=== PATIENT | male | born 1975 | race Two or more races ===

== ENCOUNTER 2017-06-09 19:39 | Inpatient (IN) | payer MEDICAID ==
[2017-06-09] MEDS ORDERED: Vancomycin 1gm in NS 250ml 1 GM/250 ML BAG IVPB STA (20:10)
[2017-06-09] MEDS ORDERED: Piperacill/Tazo 4.5gm in NS 4.5 GM/100 ML BAG IVPB STA (20:10)
[2017-06-09 20:32] LABS: BASO # 0.04 K/mm3 (0.0-2.0); BASO % 0.2 % (0.0-3.0); EOS # 0.2 (0.0-0.7); EOS % 1.4 % (1.5-5.0); GRAN # 12.89 (1.4-6.5); GRAN % 78.5 % (50.0-68.0); HEMATOCRIT 33.3 % (42.0-52.0); LYMPH # 1.8 (1.2-3.4); LYMPH % 10.8 % (22.0-35.0); MEAN CELL VOLUME 91.7 fl (80.0-105.0); MEAN CORPUSCULAR HEMOGLOBIN 30.6 pg (25.0-35.0); MEAN CORPUSCULAR HGB CONC 33.3 g/dl (31.0-37.0); MEAN PLATELET VOLUME 10.6 fl (7.0-11.0); MONO # 1.5 (0.1-0.6); MONO % 9.1 % (1.0-6.0); RED CELL DISTRIBUTION WIDTH 12.5 % (11.5-14.5); WHITE BLOOD COUNT 16.4 10^3/ul (4.5-11.0)
[2017-06-09 20:35] LABS: VENOUS BLOOD GAS BASE EXCESS -6.6 mmol/L (0.0-2.0); VENOUS BLOOD PH 7.27 (7.32-7.43)
[2017-06-09 20:46] LABS: BILIRUBIN,TOTAL 0.7 mg/dL (0.2-1.3); CALCIUM 9.8 mg/dL (8.4-10.5); MAGNESIUM 1.8 mg/dL (1.7-2.2); PHOSPHOROUS 5.2 mg/dL (2.5-4.5); POTASSIUM 3.9 mmol/L (3.6-5.0); TOTAL PROTEIN 8.5 g/dL (5.8-8.3)
[2017-06-09 20:53] LABS: ALB/GLOB RATIO 0.9 (1.1-1.8)
[2017-06-09 20:55] LABS: INR 1.29 (0.93-1.08); PARTIAL THROMBOPLASTIN TIME 24.8 Seconds (25.1-36.5)
[2017-06-09] MEDS ORDERED: Piperacillin/Tazobact 2.25gm 2.25 GM/100 ML BAG IVPB STA (21:05)
--- NOTE | 2017-06-09 21:14 | ED PDOC ---
Arrival/HPI - General Chief Complaint: Lower Extremity Problem/Injury Time Seen by Provider: 06/09/17 20:05 Historian: Patient - History of Present Illness Narrative History of Present Illness (Text): 06/09/17 20:05 Shant Vail is a 42 year old male who presents to the emergency department complaining of progressively worsening left foot pain with associated swelling and redness that began two days ago. Patient notes that his foot emits an overwhelming odor. Patient denies any fever, chills, chest pain, shortness of breath, nausea, vomiting, diarrhea, urinary symptoms, back pain, neck pain, headache, dizziness, or any other complaints. PMD: Dr. Hart Time/Duration: < week Symptom Onset: Gradual Symptom Course: Worsening Severity Level: Mild Activities at Onset: Light Context: Home Past Medical History - Provider Review Nursing Documentation Reviewed: Yes - Endocrine/Metabolic Hx Endocrine Disorders: Yes Hx Diabetes Mellitus Type 2: Yes - Psychiatric Hx Substance Use: No Family/Social History - Physician Review Nursing Documentation Reviewed: Yes Family/Social History: No Known Family HX Smoking Status: Former Smoker Hx Alcohol Use: No Hx Substance Use: No Allergies/Home Meds Allergies/Adverse Reactions: Allergies No Known Allergies Allergy (Verified 06/09/17 20:03) Home Medications: Home Meds Medication Instructions Recorded Confirmed GlipiZIDE [Glipizide] 10 mg PO BID 06/09/17 06/09/17 MetFORMIN [glucOPHAGE] 1,000 mg PO BID 06/09/17 06/09/17 Review of Systems - Physician Review All systems were reviewed & negative as marked: Yes - Review of Systems Constitutional: absent: Fevers, Night Sweats Eyes: absent: Vision Changes ENT: absent: Hearing Changes Respiratory: absent: SOB, Cough Cardiovascular: absent: Chest Pain Gastrointestinal: absent: Abdominal Pain Genitourinary Male: absent: Dysuria, Frequency Musculoskeletal: Other (Left foot pain with swelling and redness) Neurological: absent: Headache Endocrine: absent: Diaphoresis Hemo/Lymphatic: absent: Adenopathy Psychiatric: absent: Anxiety, Depression Physical Exam Vital Signs Reviewed: Yes Vital Signs Temp Pulse Resp BP Pulse Ox 06/09/17 20:35 118 H 100 H 179/108 H 14 L 06/09/17 20:25 118 H 14 165/107 H 99 06/09/17 20:15 121 H 99 H 165/97 H 14 L 06/09/17 20:04 98.5 F 130 H 18 180/107 H 100 Temperature: Afebrile Blood Pressure: Hypertensive Pulse: Tachycardic Respiratory Rate: Normal Mental Status: Positive for: Alert and Oriented X 3 - Systems Exam Head: Present: Atraumatic, Normocephalic Pupils: Present: PERRL Extroacular Muscles: Present: EOMI Conjunctiva: Present: Normal Mouth: Present: Moist Mucous Membranes Neck: Present: Normal Range of Motion Respiratory/Chest: Present: Clear to Auscultation, Good Air Exchange. No: Respiratory Distress, Accessory Muscle Use Cardiovascular: Present: Regular Rate and Rhythm, Normal S1, S2. No: Murmurs Abdomen: Present: Normal Bowel Sounds. No: Tenderness, Distention, Peritoneal Signs Back: Present: Normal Inspection Upper Extremity: Present: Normal Inspection. No: Cyanosis, Edema Lower Extremity: Present: Swelling (and Cellulitis to left foot) Neurological: Present: GCS=15, CN II-XII Intact, Speech Normal Skin: Present: Other (Scar to lateral aspect of left foot) Psychiatric: Present: Alert, Oriented x 3, Normal Insight, Normal Concentration Medical Decision Making ED Course and Treatment: 06/09/17 21:16 Impression: 42 year old male complaining of left foot pain with associated swelling and redness that began 2 days ago. Differential Diagnosis included but are not limited to: Plan: -- EKG -- Chest X-ray -- Left Foot X-ray -- Blood Culture -- Wound Culture -- Urine Culture -- Urinalysis -- Labs -- Humulin, Tylenol, Vancomycin, and Zosyn -- Reassess and disposition Progress Notes: EKG: Ordered, reviewed, and independently interpreted the EKG. Rate: 128 BPM Rhythm: Sinus tachycardia Interpretation: No ST-segment elevations or depressions, no T-wave inversions, normal intervals. case d/w dr bender for dr hart accepts case 06/12/17 22:24 - Lab Interpretations Microbiology Results: Microbiology Results 06/09/17 20:30 Blood Blood Culture - Preliminary NO GROWTH AFTER 3 DAYS 06/09/17 20:10 Blood Blood Culture - Preliminary NO GROWTH AFTER 3 DAYS Lab Results: 06/09/17 20:10 06/09/17 20:10 Lab Results 06/09/17 20:28: POC Glucose (mg/dL) 225 H 06/09/17 20:10: Sodium 139, Chloride 104, Potassium 3.9, Carbon Dioxide 18 L, Anion Gap 21 H, BUN 39 H, Creatinine 4.0 H, Est GFR ( Amer) 20, Est GFR ( Non-Af Amer) 16, Random Glucose 223 H, Calcium 9.8, Phosphorus 5.2 H, Magnesium 1.8, Total Bilirubin 0.7, AST 22, ALT 23, Alkaline Phosphatase 79, Total Protein 8.5 H, Albumin 4.0, Globulin 4.5, Albumin/Globulin Ratio 0.9 L 06/09/17 20:10: pO2 47, VBG pH 7.27 L, VBG pCO2 44.0, VBG HCO3 20.2 L, VBG Total CO2 21.6 L, VBG O2 Sat (Calc) 84.5 H, VBG Base Excess -6.6 L, VBG Potassium 3.8, Sodium 138.0, Chloride 103.0, Glucose 237 H, Lactate 1.5, FiO2 21.0, Venous Blood Potassium 3.8 06/09/17 20:10: PT 14.1 H, INR 1.29 H, APTT 24.8 L 06/09/17 20:10: WBC 16.4 H, RBC 3.63, Hgb 11.1 L, Hct 33.3 L, MCV 91.7, MCH 30.6 , MCHC 33.3, RDW 12.5, Plt Count 283, MPV 10.6, Gran % 78.5 H, Lymph % (Auto) 10.8 L, [place] % (Auto) 9.1 H, Eos % (Auto) 1.4 L, Baso % (Auto) 0.2, Gran # 12.89 H, Lymph # 1.8, [place] # 1.5 H, Eos # 0.2, Baso # 0.04 I have reviewed the lab results: Yes - RAD Interpretation Radiology Orders: 06/09/17 20:14 CHEST TWO VIEWS (PA/LAT) [RAD] Stat FOOT LEFT 3 VIEWS ROUTINE [RAD] Stat - Medication Orders Current Medication Orders: Acetaminophen (Tylenol 325mg Tab) 650 mg PO Q4H PRN PRN Reason: Fever >100.5 F Last Admin: 06/10/17 00:05 Dose: 650 mg MAR Pain/Vitals Document 11/27/17 00:05 AJP (Rec: 06/10/17 00:05 AJP [id number]) Pain Reassessment Is This A Pain ReAssessment? No Sleep Is patient sleeping during reassessment? No Presence of Pain Presence of Pain No Vitals Temperature (97.6 F-99.6 F) 102.1 F Temperature Source Rectal Re-Assess: MAR Pain/Vitals Document 06/10/17 01:05 RR (Rec: 06/10/17 20:45 RR [id number]) Pain Reassessment Is This A Pain ReAssessment? Yes Sleep Is patient sleeping during reassessment? Yes Pain Scale Used Pain Scale Used FLACC Acetaminophen (Tylenol 325mg Tab) 650 mg PO Q4 PRN PRN Reason: Pain, moderate (4-7) Alprazolam (Xanax) 0.25 mg PO TID PRN; Protocol PRN Reason: Anxiety Stop: 06/17/17 10:01 Amlodipine Besylate (Norvasc) 10 mg PO DAILY [facility] Last Admin: 06/12/17 09:22 Dose: 10 mg MAR Blood Pressure Document 06/12/17 09:22 LO (Rec: 06/12/17 09:23 [email or web address]) Blood Pressure Blood Pressure (100/60-150/90) 139/81 Enoxaparin Sodium (Lovenox) 40 mg SC DAILY [facility] PRN Reason: Protocol Last Admin: 06/12/17 09:22 Dose: 40 mg Subcutaneous Administrations Document 06/12/17 09:22 LO (Rec: 06/12/17 09:22 [email or web address]) Injection Site MAR Injection Site Umbilicus Charges for Administration # of Subcutaneous Administrations 1 Glipizide (Glucotrol) 10 mg PO BID [facility] Last Admin: 06/12/17 17:01 Dose: 10 mg Hydralazine HCl (Apresoline) 50 mg PO BID [facility] Last Admin: 06/12/17 17:01 Dose: 50 mg MAR Pulse and Blood Pressure Document 06/12/17 17:01 LO (Rec: 06/12/17 17:02 [id number] Pulse Pulse Rate (60-90) 101 Blood Pressure Blood Pressure (100/60-150/90) 123/79 Hydralazine HCl (Apresoline) 25 mg PO Q4 PRN PRN Reason: Other Linezolid (Zyvox 600mg/300ml D5w) 600 mg in 300 mls @ 200 mls/hr IVPB Q12 JACQUELINE PRN Reason: Protocol Stop: 06/17/17 10:31 Last Admin: 06/12/17 21:27 Dose: 200 mls/hr eMAR Start Stop Document 06/12/17 21:27 MUNDO (Rec: 06/12/17 21:27 MUNDO [place] [id number]) Intravenous Solution Start Date 06/12/17 Start Time 22:30 End Date 06/13/17 End time 00:00 Total Infusion Time 90 Meropenem 1 gm/ Dextrose 100 mls @ 100 mls/hr IVPB Q12 JACQUELINE Stop: 06/17/17 10:31 Last Admin: 06/12/17 21:26 Dose: 100 mls/hr eMAR Start Stop Document 06/12/17 21:26 MUNDO (Rec: 06/12/17 21:26 MUNDO [id number]) Intravenous Solution Start Date 06/12/17 Start Time 21:26 End Date 06/12/17 End time 22:26 Total Infusion Time 60 Sodium Chloride (Sodium Chloride 0.45%) 1,000 mls @ 40 mls/hr IV .Q24H [facility] Last Admin: 06/12/17 07:30 Dose: 40 mls/hr eMAR Start Stop Document 06/12/17 07:30 LO (Rec: 06/12/17 08:30 LO [id number]) Intravenous Solution Start Date 06/12/17 Start Time 07:30 Insulin Human Regular (Humulin R Low) 0 units SC ACHS JACQUELINE PRN Reason: Protocol Last Admin: 06/12/17 16:47 Dose: 2 units MAR Blood Glucose Document 06/12/17 16:47 LO (Rec: 06/12/17 16:48 LO [place] [id number]) Blood Glucose Finger Stick Blood Glucose (70-120) 217 Subcutaneous Administrations Document 06/12/17 16:47 LO (Rec: 06/12/17 16:48 LO [place] [id number]) Injection Site MAR Injection Site Left Arm Charges for Administration # of Subcutaneous Administrations 1 Metformin HCl (Glucophage) 1,000 mg PO BID [facility] Last Admin: 06/11/17 21:16 Dose: Oxychlorosene Sodium (Clorpactin Wcs-90) 2 gm TOP DAILY JACQUELINE Oxycodone/Acetaminophen (Percocet 5/325 Mg Tab) 1 tab PO Q6H PRN PRN Reason: Pain, severe (8-10) Stop: 06/13/17 16:57 Zolpidem Tartrate (Ambien) 5 mg PO HS PRN; Protocol PRN Reason: Insomnia Last Admin: 06/11/17 21:27 Dose: 5 mg Behavioural Document 06/11/17 21:27 RR (Rec: 06/11/17 21:27 RR [id number]) Maintenance Maintenance Dose Yes Re-Assess: Reassess Psych Meds Document 06/11/17 22:27 RR (Rec: 06/12/17 00:25 RR [id number]) Reassess Psych Med Effective Discontinued Medications Amlodipine Besylate (Norvasc) 10 mg PO DAILY [facility] Stop: 06/10/17 00:32 Last Admin: 06/10/17 00:50 Dose: 10 mg MAR Blood Pressure Document 06/10/17 00:50 AJP (Rec: 06/10/17 00:51 AJP [id number]) Blood Pressure Blood Pressure (100/60-150/90) 200/108 Hydralazine HCl (Apresoline) 10 mg IVP ONCE ONE Stop: 06/09/17 22:31 Last Admin: 06/09/17 22:37 Dose: 10 mg IVP Administration Document 06/09/17 22:37 RD (Rec: 06/09/17 22:38 RD [id number]) Charges for Administration # of IVP Administrations 1 MAR Pulse and Blood Pressure Document 06/09/17 22:37 RD (Rec: 06/09/17 22:38 RD [id number]) Pulse Pulse Rate (60-90) 118 Blood Pressure Blood Pressure (100/60-150/90) 168/95 Hydromorphone HCl (Dilaudid) 1 mg IVP STAT STA Stop: 06/11/17 09:40 Last Admin: 06/11/17 09:40 Dose: Not Given Non-Admin Reason: Patient Refused MAR Pain Assessment Document 06/11/17 09:40 LO (Rec: 06/11/17 15:17 LO [id number]) Pain Reassessment Is this a pain reassessment? No Sleep Is patient sleeping during reassessment? No Presence of Pain Presence of Pain No Sodium Chloride 3,000 ml/ IV (SUPPLIES) 3,000 mls @ 7,076.04 mls/hr IV ONCE ONE PRN Reason: 60 ML/KG/HR Stop: 06/09/17 20:11 Last Admin: 06/09/17 20:18 Dose: 7,076.04 mls/hr eMAR Start Stop Document 06/09/17 20:18 YP (Rec: 06/09/17 20:18 YP [id number]) Intravenous Solution Start Date 06/09/17 Start Time 20:18 End Date 06/09/17 End time 20:45 Total Infusion Time 27 Vancomycin HCl (Vancomycin 1gm) 1 gm in 250 mls @ 167 mls/hr IVPB STAT STA PRN Reason: Protocol Stop: 06/09/17 21:39 Last Admin: 06/09/17 21:19 Dose: 167 mls/hr eMAR Start Stop Document 06/09/17 21:19 RD (Rec: 06/09/17 21:19 RD [id number]) Intravenous Solution Start Date 06/09/17 Start Time 21:19 End Date 06/09/17 End time 22:49 Total Infusion Time 90 Piperacillin Sod/Tazobactam Sod (Zosyn 2.25 Gm In 0.9% 100 Ml) 2.25 gm in 100 mls @ 100 mls/hr IVPB STAT STA PRN Reason: Protocol Stop: 06/09/17 22:04 Last Admin: 06/10/17 00:20 Dose: 100 mls/hr eMAR Start Stop Document 06/10/17 00:20 AJP (Rec: 06/10/17 00:20 [id number]) Intravenous Solution Start Date 06/10/17 Start Time 00:20 Sodium Chloride (Sodium Chloride 0.9%) 1,000 mls @ 80 mls/hr IV .[id number] JACQUELINE Last Admin: 06/10/17 00:20 Dose: 80 mls/hr eMAR Start Stop Document 06/10/17 00:20 AJP (Rec: 06/10/17 00:20 [id number]) Intravenous Solution Start Date 06/10/17 Start Time 00:20 Meropenem 500 mg/ Sodium (Chloride) 50 mls @ 100 mls/hr IVPB Q12 JACQUELINE PRN Reason: Protocol Stop: 06/17/17 10:31 Last Admin: 06/10/17 11:22 Dose: 100 mls/hr eMAR Start Stop Document 06/10/17 11:22 [facility]MC (Rec: 06/10/17 11:23 [facility] [id number]) Intravenous Solution Start Date 06/10/17 Start Time 11:22 End Date 06/10/17 End time 12:00 Total Infusion Time 38 Sodium Chloride (Sodium Chloride 0.45%) 1,000 mls @ 75 mls/hr IV .[id number] JACQUELINE Last Admin: 06/11/17 21:16 Dose: 75 mls/hr eMAR Start Stop Document 06/11/17 21:16 RR (Rec: 06/11/17 21:16 RR [id number]) Intravenous Solution Start Date 06/11/17 Start Time 21:16 Meropenem 1,000 mg/ Sodium (Chloride) 50 mls @ 100 mls/hr IVPB Q12 JACQUELINE PRN Reason: Protocol Stop: 06/17/17 10:31 Losartan Potassium (Cozaar) 100 mg PO DAILY [facility] Stop: 06/10/17 00:43 Last Admin: 06/10/17 00:51 Dose: 100 mg Losartan Potassium (Cozaar) 100 mg PO DAILY [facility] Last Admin: 06/10/17 10:28 Dose: 100 mg Valsartan (Diovan) 180 mg PO DAILY [facility] Stop: 06/10/17 00:32 Last Admin: 06/10/17 20:45 Dose: - Scribe Statement The provider has reviewed the documentation as recorded by the Kassandra Farris Provider Scribe Attestation: All medical record entries made by the Vinodibtobin were at my direction and personally dictated by me. I have reviewed the chart and agree that the record accurately reflects my personal performance of the history, physical exam, medical decision making, and the department course for this patient. I have also personally directed, reviewed, and agree with the discharge instructions and disposition. Disposition/Present on Arrival - Present on Arrival Any Indicators Present on Arrival: No History of DVT/PE: No History of Uncontrolled Diabetes: No Urinary Catheter: No History of Decub. Ulcer: Yes (left foot) History Surgical Site Infection Following: None - Disposition Have Diagnosis and Disposition been Completed?: Yes Diagnosis: Diabetic foot infection Disposition: HOSPITALIZED Disposition Time: 22:00 Condition: FAIR
[2017-06-09] MEDS ORDERED: Sodium Chloride 0.9% 1,000 ML IV SCH (22:45)
[2017-06-09 22:51] LABS: URINE BILIRUBIN NEGATIVE (NEGATIVE); URINE BLOOD SMALL (NEGATIVE); URINE GLUCOSE (UA) 100 mg/dL (NEGATIVE); URINE KETONE TRACE mg/dL (NEGATIVE); URINE LEUKOCYTE ESTERASE NEGATIVE Leu/uL (NEGATIVE); URINE PROTEIN 30 mg/dL (<30 mg/dL); URINE UROBILINOGEN 0.2 E.U./dL (<1 E.U./dL)
[2017-06-09 22:55] LABS: URINE APPEARANCE SL CLOUDY (CLEAR); URINE COLOR YELLOW (YELLOW)
[2017-06-09 23:01] LABS: URINE BACTERIA MOD (NEG)
--- NOTE | 2017-06-10 08:24 | RAD ---
PROCEDURE: Left Foot Radiographs. HISTORY: foot infection COMPARISON: None. FINDINGS: BONES: Normal. No fracture. JOINTS: Degenerative changes are seen in the ankle joint SOFT TISSUES: There is gas in the soft tissues adjacent to the 5th MTP joint. There is no bony destruction to suggest osteomyelitis. OTHER FINDINGS: None. IMPRESSION: Gas in the soft tissues with no evidence of osteomyelitis
--- NOTE | 2017-06-10 08:24 | RAD ---
HISTORY: fall COMPARISON: No prior. TECHNIQUE: Chest PA and lateral FINDINGS: LUNGS: No active pulmonary disease. PLEURA: No significant pleural effusion identified. No pneumothorax apparent. CARDIOVASCULAR: Normal. OSSEOUS STRUCTURES: No significant abnormalities. VISUALIZED UPPER ABDOMEN: Normal. OTHER FINDINGS: None. IMPRESSION: No active disease.
--- NOTE | 2017-06-10 08:47 | CP.PCM.CON ---
<Libertad Tran - Last Filed: 06/10/17 08:41> History of Present Illness - History of Present Illness History of Present Illness: 42 y/o male with PMHx of DM and HTN seen and evaluated at bedside with attending Dr. Chou for left foot wound. Patient states that he had a callus at the site of the wound which he tried to pick at 2 days ago which led to what he has now. Patient states that he has been having fever for the past couple of days. Patient states that he came to the hospital yesterday because of the pain in his left foot. Patient denies of any other pedal complains at this time. PMHx: DM, HTN PSHx: Denies Allergies: N.K.D.A Review of Systems - Constitutional Constitutional: As Per HPI Past Patient History - Past Social History Smoking Status: Former Smoker - ENDOCRINE/METABOLIC Hx Endocrine Disorders: Yes Hx Diabetes Mellitus Type 2: Yes - MUSCULOSKELETAL/RHEUMATOLOGICAL Hx Falls: No - PSYCHIATRIC Hx Substance Use: No Meds Allergies/Adverse Reactions: Allergies Allergy/AdvReac Type Severity Reaction Status Date / Time No Known Allergies Allergy Verified 06/09/17 20:03 - Medications Medications: Current Medications Acetaminophen (Tylenol 325mg Tab) 650 mg PO Q4H PRN PRN Reason: Fever >100.5 F Last Admin: 06/10/17 00:05 Dose: 650 mg Amlodipine Besylate (Norvasc) 10 mg PO DAILY [facility] Sodium Chloride (Sodium Chloride 0.9%) 1,000 mls @ 80 mls/hr IV .[id number] [facility] Last Admin: 06/10/17 00:20 Dose: 80 mls/hr Insulin Human Regular (Humulin R Low) 0 units SC ACHS [facility] PRN Reason: Protocol Losartan Potassium (Cozaar) 100 mg PO DAILY [facility] Physical Exam - Constitutional Appears: Well, Non-toxic, No Acute Distress - Extremities Exam Extremities exam: Negative for: calf tenderness Additional comments: Bilateral LE focused exam: VASC: DP/PT pulses are palpable 2/4, Cap refill time: < 3 sec to all digits, Temp gradient: warm to cool on the right and warm to warm on the left from proximal to distal, non-pitting edema noted on the dorsum and lateral aspect of the left foot extending to the ankle joint DERM: Erythema extending from the dorsum, and lateral aspect of the left foot to the ankle, hyperpigmented superficial skin with small opening measuring approx 2.0cm x 2.0cm noted on the dorsum of the 5th metatarsal head as well as the plantar aspect of the 5th met head, extreme malodor, fluctuance noted palpation of the dorsolateral, plantarlateral and 4th interspace of the left foot, all signs are highly suspicious of active infection indicating soft tissue emphysema NEURO: Protective sensation grossly intact ORTHO: mild pain on palpation of the wound site - Neurological Exam Neurological exam: Alert, Oriented x3 - Psychiatric Exam Psychiatric exam: Normal Affect, Normal Mood Results - Vital Signs Recent Vital Signs: Last Vital Signs Temp 102.1 F H 06/10/17 00:23 Pulse 127 H 06/10/17 00:23 Resp 20 06/10/17 00:23 BP 200/108 H 06/10/17 00:50 Pulse Ox 14 L 06/09/17 20:35 - Labs Result Diagrams: 06/09/17 20:10 06/09/17 20:10 Labs: Laboratory Results - last 24 hr 06/09/17 22:30 Urine Color Yellow Urine Appearance Sl cloudy Urine pH 6.0 Ur Specific [place] 1.015 Urine Protein 30 H Urine Glucose (UA) 100 H Urine Ketones Trace H Urine Blood Small H Urine Nitrate Negative Urine Bilirubin Negative Urine Urobilinogen 0.2 Ur Leukocyte Esterase Negative Urine RBC 1 - 3 Urine WBC 5 - 10 Ur Epithelial Cells 3 - 4 Urine Bacteria Mod Assessment & Plan - Assessment and Plan (Free Text) Assessment: 42 y/o male with PMHx of DM and HTN evaluated at bedside for left foot abscess with soft tissue emphysema Plan: Patient seen and evaluated at bedside with attending Dr. Chou Labs, vitals and, charts reviewed - febrile with WBC @ 16.4 Left foot x-ray - diffuse radiolucensy on the lateral aspect of the left foot as well as the 4th interspace indicating gas Wound dressed with hydrogel, DSD Patient to go for I&D of the left foot today CXR and EKG reviewed CBC with diff, BMP and PT/INR reviewed Patient placed on NPO Patient educated he will need to go to the OR for wound debridement - patient demonstrated verbal understanding and agrees with the plan Thank you for the podiatry consult - will follow patient while in house - Date & Time Date: 06/10/17 Time: 09:03 <Analilia Chou - Last Filed: 06/10/17 11:12> Meds - Medications Medications: Current Medications Acetaminophen (Tylenol 325mg Tab) 650 mg PO Q4H PRN PRN Reason: Fever >100.5 F Last Admin: 06/10/17 00:05 Dose: 650 mg Alprazolam (Xanax) 0.25 mg PO TID PRN; Protocol PRN Reason: Anxiety Stop: 06/17/17 10:01 Amlodipine Besylate (Norvasc) 10 mg PO DAILY [facility] Last Admin: 06/10/17 10:27 Dose: 10 mg Sodium Chloride (Sodium Chloride 0.45%) 1,000 mls @ 40 mls/hr IV .Q24H JACQUELINE Meropenem 500 mg/ Sodium (Chloride) 50 mls @ 100 mls/hr IVPB Q12 JACQUELINE PRN Reason: Protocol Stop: 06/17/17 10:31 Linezolid (Zyvox 600mg/300ml D5w) 600 mg in 300 mls @ 200 mls/hr IVPB Q12 JACQUELINE PRN Reason: Protocol Stop: 06/17/17 10:31 Insulin Human Regular (Humulin R Low) 0 units SC ACHS JACQUELINE PRN Reason: Protocol Losartan Potassium (Cozaar) 100 mg PO DAILY [facility] Last Admin: 06/10/17 10:28 Dose: 100 mg Zolpidem Tartrate (Ambien) 5 mg PO HS PRN; Protocol PRN Reason: Insomnia Results - Vital Signs Recent Vital Signs: Last Vital Signs Temp 98.9 F 06/10/17 09:00 Pulse 127 H 06/10/17 09:00 Resp 18 06/10/17 09:00 BP 164/87 H 06/10/17 10:27 Pulse Ox 98 06/10/17 09:00 - Labs Result Diagrams: 06/09/17 20:10 06/09/17 20:10 Labs: Laboratory Results - last 24 hr 06/09/17 22:30 Urine Color Yellow Urine Appearance Sl cloudy Urine pH 6.0 Ur Specific [place] 1.015 Urine Protein 30 H Urine Glucose (UA) 100 H Urine Ketones Trace H Urine Blood Small H Urine Nitrate Negative Urine Bilirubin Negative Urine Urobilinogen 0.2 Ur Leukocyte Esterase Negative Urine RBC 1 - 3 Urine WBC 5 - 10 Ur Epithelial Cells 3 - 4 Urine Bacteria Mod Attending/Attestation - Attestation I have personally seen and examined this patient.: Yes I have fully participated in the care of the patient.: Yes I have reviewed all pertinent clinical information: Yes Notes (Text): 06/10/17 11:[address] Soria and sicussed case with him - pt has gas in tissue - sepsis and needs emergency I&D/debridement today
[2017-06-10] MEDS ORDERED: Sodium Chloride 0.45% 1,000 ML IV SCH (09:15)
--- NOTE | 2017-06-10 10:05 | CARD ---
APPROVED REPORT EKG Measurement Heart [id number] <Conclusion> Sinus tachycardia Leftward axis PRWP
[2017-06-10] MEDS ORDERED: Meropenem 500 MG in Sodium Chloride 0.9% 50 ML IVPB SCH (10:30)
--- NOTE | 2017-06-10 11:46 | CP.PCM.CON ---
History of Present Illness - History of Present Illness History of Present Illness: Surgery Consult: Dr. Soria Pt is a 42M with PMHx significant for DM & HTN who presented to [facility] for complaints of foot L foot wound. Pt states that about 2 weeks ago, he felt a callus at the bottom of his left foot and he tried to cut it out with scissors. Over the course of the next few days, he noticed redness and swelling of the area. He also started seeing some foul smelling drainage and came to the ER yesterday to get it evaluated. Pt states he has never had a similar problem in the past. He admits to subjective fevers for the last few days. States he's able to walk on his left foot and pain is bearable now. Denies any other complaints. Denies N/V, chills, chest pain or SOB. PMHx: DM, HTN PSHx: denies All: denies Review of Systems - Review of Systems All systems: reviewed and no additional remarkable complaints except (as per HPI ) Past Patient History - Past Social History Smoking Status: Former Smoker - CARDIAC Hx Hypertension: Yes - PULMONARY Hx Respiratory Disorders: No - RENAL Hx Chronic Kidney Disease: No - ENDOCRINE/METABOLIC Hx Endocrine Disorders: Yes Hx Diabetes Mellitus Type 2: Yes - MUSCULOSKELETAL/RHEUMATOLOGICAL Hx Falls: No - PSYCHIATRIC Hx Substance Use: No - SURGICAL HISTORY Hx Surgeries: No - ANESTHESIA Hx Anesthesia: No Meds Allergies/Adverse Reactions: Allergies Allergy/AdvReac Type Severity Reaction Status Date / Time No Known Allergies Allergy Verified 06/09/17 20:03 - Medications Medications: Current Medications Acetaminophen (Tylenol 325mg Tab) 650 mg PO Q4H PRN PRN Reason: Fever >100.5 F Last Admin: 06/10/17 00:05 Dose: 650 mg Alprazolam (Xanax) 0.25 mg PO TID PRN; Protocol PRN Reason: Anxiety Stop: 06/17/17 10:01 Amlodipine Besylate (Norvasc) 10 mg PO DAILY JACQUELINE Last Admin: 06/10/17 10:27 Dose: 10 mg Sodium Chloride (Sodium Chloride 0.45%) 1,000 mls @ 40 mls/hr IV .Q24H JACQUELINE Meropenem 500 mg/ Sodium (Chloride) 50 mls @ 100 mls/hr IVPB Q12 JACQUELINE PRN Reason: Protocol Stop: 06/17/17 10:31 Last Admin: 06/10/17 11:22 Dose: 100 mls/hr Linezolid (Zyvox 600mg/300ml D5w) 600 mg in 300 mls @ 200 mls/hr IVPB Q12 JACQUELINE PRN Reason: Protocol Stop: 06/17/17 10:31 Insulin Human Regular (Humulin R Low) 0 units SC ACHS JACQUELINE PRN Reason: Protocol Losartan Potassium (Cozaar) 100 mg PO DAILY JACQUELINE Last Admin: 06/10/17 10:28 Dose: 100 mg Zolpidem Tartrate (Ambien) 5 mg PO HS PRN; Protocol PRN Reason: Insomnia Physical Exam - Constitutional Appears: Well, No Acute Distress - Head Exam Head Exam: ATRAUMATIC, NORMOCEPHALIC - Eye Exam Eye Exam: Normal appearance - ENT Exam ENT Exam: Mucous Membranes Moist - Respiratory Exam Respiratory Exam: NORMAL BREATHING PATTERN - Cardiovascular Exam Cardiovascular Exam: RRR - GI/Abdominal Exam GI & Abdominal Exam: Soft. absent: Distended - Extremities Exam Additional comments: L foot warm to touch, ulcer on the dorsal surface with eschar, no active drainage noted. sensation intact - Neurological Exam Neurological exam: Alert, Oriented x3 - Skin Skin Exam: Dry, Warm Results - Vital Signs Recent Vital Signs: Last Vital Signs Temp 98.9 F 06/10/17 09:00 Pulse 127 H 06/10/17 09:00 Resp 18 06/10/17 09:00 BP 164/87 H 06/10/17 10:27 Pulse Ox 98 06/10/17 09:00 - Labs Result Diagrams: 06/09/17 20:10 06/09/17 20:10 Labs: Laboratory Results - last 24 hr 06/09/17 06/10/17 22:30 11:14 POC Glucose (mg/dL) 144 H Urine Color Yellow Urine Appearance Sl cloudy Urine pH 6.0 Ur Specific [place] 1.015 Urine Protein 30 H Urine Glucose (UA) 100 H Urine Ketones Trace H Urine Blood Small H Urine Nitrate Negative Urine Bilirubin Negative Urine Urobilinogen 0.2 Ur Leukocyte Esterase Negative Urine RBC 1 - 3 Urine WBC 5 - 10 Ur Epithelial Cells 3 - 4 Urine Bacteria Mod - Imaging and Cardiology X-ray L foot Status: Image reviewed by me, Report reviewed by me Assessment & Plan - Assessment and Plan (Free Text) Assessment: 42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 Jareth Braun, PGY-3 Surgery
--- NOTE | 2017-06-10 12:50 | CP.PCM.CON ---
History of Present Illness - History of Present Illness History of Present Illness: 42 year old male with PMH of DM, HTN obesity with BMI 37, came in to [facility] complaining of pain and swelling on the left foot since about 1 1 /2 weeks ago, associated with a wound on the lateral plantar surface area below the 4th and 5th toes. He states he did not having a wound there prior to last week. He denies specific animal contact to his foot but he has a cat at home, tried cleaning his foot with hydrogen peroxide and soaking it in water. He denies walking barefoot on soil but the patient walks barefoot at home. He denies fever or chills, no nausea or vomiting, no chest pain, no SOB, no headache or dizziness, no abdominal pain, no diarrhea, no dysuria, no travel outside of [place] in the past 3 months and has not been on antibiotics in the past 3 months. Infectious diseases consult is requested to further evaluate and manage. Review of Systems - Review of Systems All systems: reviewed and no additional remarkable complaints except (as per HPI ) Past Patient History - Past Social History Smoking Status: Former Smoker - ENDOCRINE/METABOLIC Hx Endocrine Disorders: Yes Hx Diabetes Mellitus Type 2: Yes - MUSCULOSKELETAL/RHEUMATOLOGICAL Hx Falls: No - PSYCHIATRIC Hx Substance Use: No Meds Allergies/Adverse Reactions: Allergies Allergy/AdvReac Type Severity Reaction Status Date / Time No Known Allergies Allergy Verified 06/09/17 20:03 - Medications Medications: Current Medications Acetaminophen (Tylenol 325mg Tab) 650 mg PO Q4H PRN PRN Reason: Fever >100.5 F Last Admin: 06/10/17 00:05 Dose: 650 mg Alprazolam (Xanax) 0.25 mg PO TID PRN; Protocol PRN Reason: Anxiety Stop: 06/17/17 10:01 Amlodipine Besylate (Norvasc) 10 mg PO DAILY JACQUELINE Sodium Chloride (Sodium Chloride 0.45%) 1,000 mls @ 40 mls/hr IV .Q24H JACQUELINE Meropenem 500 mg/ Sodium (Chloride) 50 mls @ 100 mls/hr IVPB Q12 JACQUELINE PRN Reason: Protocol Stop: 06/17/17 10:31 Linezolid (Zyvox 600mg/300ml D5w) 600 mg in 300 mls @ 200 mls/hr IVPB Q12 JACQUELINE PRN Reason: Protocol Stop: 06/17/17 10:31 Insulin Human Regular (Humulin R Low) 0 units SC ACHS JACQUELINE PRN Reason: Protocol Losartan Potassium (Cozaar) 100 mg PO DAILY JACQUELINE Zolpidem Tartrate (Ambien) 5 mg PO HS PRN; Protocol PRN Reason: Insomnia Physical Exam - Constitutional Appears: Non-toxic - Head Exam Head Exam: NORMAL INSPECTION - ENT Exam ENT Exam: Mucous Membranes Moist - Neck Exam Neck exam: Negative for: Lymphadenopathy, Meningismus - Respiratory Exam Respiratory Exam: absent: Rales, Rhonchi - Cardiovascular Exam Cardiovascular Exam: +S1, +S2 - GI/Abdominal Exam GI & Abdominal Exam: Soft. absent: Tenderness - Extremities Exam Additional comments: left foot with dressings in place Results - Vital Signs Recent Vital Signs: Last Vital Signs Temp 98.9 F 06/10/17 09:00 Pulse 127 H 06/10/17 09:00 Resp 18 06/10/17 09:00 BP 164/87 H 06/10/17 09:00 Pulse Ox 98 06/10/17 09:00 - Labs Result Diagrams: 06/09/17 20:10 06/09/17 20:10 Labs: Laboratory Results - last 24 hr 06/09/17 22:30 Urine Color Yellow Urine Appearance Sl cloudy Urine pH 6.0 Ur Specific [place] 1.015 Urine Protein 30 H Urine Glucose (UA) 100 H Urine Ketones Trace H Urine Blood Small H Urine Nitrate Negative Urine Bilirubin Negative Urine Urobilinogen 0.2 Ur Leukocyte Esterase Negative Urine RBC 1 - 3 Urine WBC 5 - 10 Ur Epithelial Cells 3 - 4 Urine Bacteria Mod Assessment & Plan - Assessment and Plan (Free Text) Plan: Assessment Sepsis due to left diabetic foot infection R/O gangrene R/O osteomyelitis DM HTN obesity with BMI 37 Plan Started patient on Vancomycin and Merrem pending blood and wound cx; patient is planned for OR today on the foot and will await results including cultures will monitor clinically
--- NOTE | 2017-06-10 14:45 | CP.PCM.CON ---
History of Present Illness - History of Present Illness History of Present Illness: Initial Nephrology Consultation: Assessment: critical Acute Kidney Injury (N17.9) possibly due to sepsis due to left wound infection HAGMA, ketoacidosis DM, HTN, Obesity uncontrolled severe HTN Plan No acute need for renal replacement therapy at this time. Hypertension control with meds as ordered. hold ACEI/ARB due to IMANI. will add hydralazine. check renal artery doppler/sonogram Monitor Input/Output, daily weights and renal function with basic metabolic panel Increase IVF rate Check urine spot protein/creatinine and albumin/creatinine ratio, urine Na further work up depending upon renal course. Dose meds/antibiotics for reduced GFR <15. Avoid fleets enema/magnesium based laxatives. Avoid nephrotoxins/NSAIDs/ iodinated contrast (unless needed emergently) Glycemic control Further work up/management as per primary team Thanks for allowing me to participate in care of your patient. Will follow patient with you. Please call if any Qs. d/w team Dr Titus Neil Office: [phone] Chief Complaint; left foot wound infection Reason for consult: IMANI HPI: Pt is a 42 y/o M with hx of diabetes Mellitus ( 7 years), hypertension (7 years), obesity BMI 37 presented with complaints of left foot wound infection, worsening, for last 1 week. has associated sepsis and renal consulted for IMANI> pt not aware about kidney problems in past. Denies chest pain, palpitation, shortness of breath, leg swelling Denies blood or bubbles in urine Denies OTC/herbal meds or NSAIDs except occasional advil (once a week at max) No recent iodinated contrast exposure. No obvious episodes of low BP. ROS: Constitutional Symptoms: Denies fever. No chills. No Recent Weight Changes Eyes: denies change in vision, denies watery eyes, denies double vision Ears/Nose/Mouth/Throat: Denies Abnormal Taste. No Bad breath no Bad Taste. Cardiovascular: No chest pain. There is no shortness of breath. No palpitations. Pulmonary: No shortness of breath no cough. Gastrointestinal: denies abdominal pain No nausea. No vomiting. Denies change in bowel habits. Denies Bleeding Genitourinary: No Change in force of strain when urinating. No increase in urinary frequency. No pain while urinating. Denies blood in urine. Neurological: Denies headaches. No dizziness. Denies loss of balance. Denies weakness, denies tingling/numbness Dermatological: No Rash or Bruising or ulcers. Psychiatric: Denies Anxiety. No depression. Denies hallucinations. Rheumatological: No joint pain. Denies Joint swelling except left foot wound/ infection Endocrine: Denies tiredness/Fatigue denies Heat/Cold Intolerance. All other negative Physical Examination: General Appearance: Comfortable, in no acute respiratory distress, co-operative . obese Vitals reviewed and noted as below Head; Atraumatic, normocephalic ENT: no ulcers no thrush. Tongue is midline. Oropharynx: no rash or ulcers. EYES: Pupils are equal, round and reactive to light accommodation. Eye muscles and extraocular movement intact. Sclera is anicteric. Neck; supple no lymphadenopathy, no thyromegaly or bruit Lungs: Normal respiratory rate/effort. Breath sounds bilateral equal and clear Heart: Increased rate. s1s2 normal. No rub or gallop. Extremities: no edema. No varicose veins. LEft foot dressed, has foul odor Neurological: Patient is alert, awake and oriented to person, place and time. No focal deficit. Strength bilateral appropriate and equal Skin: Warm and dry. Normal turgor. No rash. Palpitation: Normal elasticity for age Abdomen: Abdomen is soft. Bowel sounds +. There is no abdominal tenderness, no guarding/rigidity no organomegaly Psych: normal insight and normal affect/mood MSK: no joint tenderness or swelling. Digits and nails normal, no deformity : kidney or bladder not palpable Labs/imaging/EKG reviewed. Past medical history, past surgical history, family history, social history, allergy reviewed and noted as below Family hx: no hx of CKD. Rest non-contributory Past Patient History - Past Social History Smoking Status: Former Smoker - CARDIAC Hx Hypertension: Yes - PULMONARY Hx Respiratory Disorders: No - RENAL Hx Chronic Kidney Disease: No - ENDOCRINE/METABOLIC Hx Endocrine Disorders: Yes Hx Diabetes Mellitus Type 2: Yes - MUSCULOSKELETAL/RHEUMATOLOGICAL Hx Falls: No - PSYCHIATRIC Hx Substance Use: No - SURGICAL HISTORY Hx Surgeries: No - ANESTHESIA Hx Anesthesia: No Meds Allergies/Adverse Reactions: Allergies Allergy/AdvReac Type Severity Reaction Status Date / Time No Known Allergies Allergy Verified 06/09/17 20:03 - Medications Medications: Current Medications Acetaminophen (Tylenol 325mg Tab) 650 mg PO Q4H PRN PRN Reason: Fever >100.5 F Last Admin: 06/10/17 00:05 Dose: 650 mg Alprazolam (Xanax) 0.25 mg PO TID PRN; Protocol PRN Reason: Anxiety Stop: 06/17/17 10:01 Amlodipine Besylate (Norvasc) 10 mg PO DAILY JACQUELINE Last Admin: 06/10/17 10:27 Dose: 10 mg Hydralazine HCl (Apresoline) 50 mg PO BID JACQUELINE Hydralazine HCl (Apresoline) 25 mg PO Q4 PRN PRN Reason: Other Meropenem 500 mg/ Sodium (Chloride) 50 mls @ 100 mls/hr IVPB Q12 JACQUELINE PRN Reason: Protocol Stop: 06/17/17 10:31 Last Admin: 06/10/17 11:22 Dose: 100 mls/hr Linezolid (Zyvox 600mg/300ml D5w) 600 mg in 300 mls @ 200 mls/hr IVPB Q12 JACQUELINE PRN Reason: Protocol Stop: 06/17/17 10:31 Sodium Chloride (Sodium Chloride 0.45%) 1,000 mls @ 75 mls/hr IV .[id number] JACQUELINE Insulin Human Regular (Humulin R Low) 0 units SC ACHS JACQUELINE PRN Reason: Protocol Zolpidem Tartrate (Ambien) 5 mg PO HS PRN; Protocol PRN Reason: Insomnia Results - Vital Signs Recent Vital Signs: Last Vital Signs Temp 98.9 F 06/10/17 09:00 Pulse 127 H 06/10/17 09:00 Resp 18 06/10/17 09:00 BP 164/87 H 06/10/17 10:27 Pulse Ox 98 06/10/17 09:00 - Labs Result Diagrams: 06/09/17 20:10 06/09/17 20:10 Labs: Laboratory Results - last 24 hr 06/09/17 06/10/17 22:30 11:14 POC Glucose (mg/dL) 144 H Urine Color Yellow Urine Appearance Sl cloudy Urine pH 6.0 Ur Specific [place] 1.015 Urine Protein 30 H Urine Glucose (UA) 100 H Urine Ketones Trace H Urine Blood Small H Urine Nitrate Negative Urine Bilirubin Negative Urine Urobilinogen 0.2 Ur Leukocyte Esterase Negative Urine RBC 1 - 3 Urine WBC 5 - 10 Ur Epithelial Cells 3 - 4 Urine Bacteria Mod
[2017-06-10] MEDS ORDERED: Lidocaine 1% Inj (20ml) ONE (15:30)
[2017-06-10] MEDS ORDERED: Propofol 10 mg/ml Inj (20 ML) ONE (15:40)
[2017-06-10] MEDS ORDERED: Midazolam 2 MG/2 ML VIAL ONE ×2 (15:42→16:07)
[2017-06-10] MEDS ORDERED: Bupivacaine 0.5% Inj(30mL) ONE ×2 (15:56→16:15)
--- NOTE | 2017-06-10 16:22 | HP ---
HISTORY OF PRESENT ILLNESS: I was consulted by Dr. Garcia, to put in on my H and P in my service. He was sent to the Emergency Room by Dr. Garcia, the beam saw operator with worsening swelling and redness began about two days ago. He had overwhelming odor and is under a lot of pain, he is very scared, worried, and anxious about it. PAST MEDICAL HISTORY: He has got a past medical history of diabetes. He has got his left foot swelling and ulcer in the toe and also a bit swollen and odorous. FAMILY HISTORY: He has hypertension and diabetes in the family. SOCIAL HISTORY: He is a formal smoker. No alcohol and no drugs. ALLERGIES: NO KNOWN DRUG ALLERGIES. MEDICATIONS: He was on glipizide and Glucophage, both are on hold. I will put him on insulin coverage until after the surgery. REVIEW OF SYSTEMS: He is extremely nervous and anxious about this procedure, he is going to have done with the beam saw operator. No fevers and no night sweats. No changes in vision and no hearing changes. No sore throat. No neck pain. No chest pain. No palpitations. No shortness of breath, coughing, wheezing, or congestion. No abdominal pain. No nausea, vomiting, constipation, or diarrhea. No headache. He is not sweating. He is very anxious and very upset about the procedure. He has left foot pain, swelling, and redness. PHYSICAL EXAMINATION VITAL SIGNS: He has a 98.5 temperature, he has 130 pulse, he has a 18 respiratory rate, and 179/108 blood pressure, I will address the blood pressure because it is so high and 100% O2 saturation on room air. HEENT: His head is atraumatic and normocephalic. Extraocular muscles are intact. Pupils are equal and reactive to light and accommodation. Throat is moist. NECK: Supple. HEART: Regular rate. Normal S1 and S2. LUNGS: Decreased breath sounds. Fair air exchange. Clear to auscultation bilaterally. No wheezes, no rhonchi, and no rales. ABDOMEN: Soft and nontender. Positive bowel sounds. Mildly obese. No guarding. No rebound. No CVA tenderness. EXTREMITIES: Left foot is bandaged. It looks swollen. There is an odor. NEUROLOGIC: GCS is 15. Cranial nerves II through XII grossly intact. Normal speech. He is very anxious and nervous. Alert and oriented x3. LYMPHATICS: Thyroid is midline. No palpable or appreciable lymph adenopathy at this time. RADIOLOGIC DATA: He had multiple test. He had a chest x-ray, which show no active disease. He also had a left foot x-ray, which showed gas in the soft tissues. No evidence of osteomyelitis. LABORATORY DATA: He had a blood test. He has a 16.4 white count, 11.1 hemoglobin and 30.3 hematocrit, with a 283 platelets. INR is 1.29. His lactate is 1.5. He has a 139 sodium, potassium is 3.9, BUN is 39, and creatinine is 4. I will get Renal in for his renal failure, which to me is new. Sugar was 225, he is on coverage. I will add back his medications after the procedure. His calcium is 9.8, phosphorus is 5.2, magnesium is 1.8, and total bilirubin is 0.78. AST Is 22. ALT is 22, alkaline phosphatase is 79, total protein is 8.5, and albumin is 4. Urine is moderate bacteria, he is having a little bit of urinary tract infection also on this nice 42-year-old male. IMPRESSION AND PLAN: He is going to have a consult with Dr. Garcia, the beam saw operator, also Dr. Kevin and Dr. Lao of Infectious Diseases. I am also going to call on renal. He will be on IV fluids and his medications. Also insulin coverage until I could square away his kidneys and know what the plan is for the foot. So, we will see here for few things, gas in the foot with odor, redness, cellulitis, diabetes, anxiety, renal failure, and urinary tract infection. Karl Hart DO
--- NOTE | 2017-06-10 16:49 | PCM.SURG1 ---
Surgeon's Initial Post Op Note - Surgeon's Notes Surgeon: Yang [employer] Estimator: Rianna PGY1, Marc PGY1 Type of Anesthesia: MAC Pre-Operative Diagnosis: Infected L. Foot Ulcer Operative Findings: Infected L. Foot Ulcer with abscess Post-Operative Diagnosis: Infected L. Foot Ulcer Operation Performed: Incision and drainage of L. Foot wound with debridement Specimen/Specimens Removed: wound culture Estimated Blood Loss: EBL {In ML}: 1 Blood Products Given: N/A Drains Used: [place] (x2) Post-Op Condition: Good Date of Surgery/Procedure: 06/10/17 Time of Surgery/Procedure: 16:51
[2017-06-10] MEDS ORDERED: Oxycodone/Acetaminophen 5/325 mg Tab PO PRN (16:56)
[2017-06-10] MEDS: Insulin Reg-LOW-Coverage SC SCH ×4 (18:16→22:07)
[2017-06-10] MEDS: Sodium Chloride 0.45% 1,000 ML IV SCH (18:27)
[2017-06-10] MEDS: Linezolid 600 mg in D5W 300 ml 600 MG/300 ML BAG IVPB SCH ×2 (18:42→21:52)
[2017-06-11 06:25] LABS: HEMATOCRIT 26.5 % (42.0-52.0); MEAN CELL VOLUME 91.4 fl (80.0-105.0); MEAN CORPUSCULAR HEMOGLOBIN 30.3 pg (25.0-35.0); MEAN CORPUSCULAR HGB CONC 33.2 g/dl (31.0-37.0); MEAN PLATELET VOLUME 10.1 fl (7.0-11.0); RED CELL DISTRIBUTION WIDTH 12.5 % (11.5-14.5); WHITE BLOOD COUNT 11.5 10^3/ul (4.5-11.0)
[2017-06-11] MEDS: Insulin Reg-LOW-Coverage SC SCH ×4 (07:35→21:33)
[2017-06-11 07:36] LABS: ALB/GLOB RATIO 0.9 (1.1-1.8); BILIRUBIN,TOTAL 0.5 mg/dL (0.2-1.3); CALCIUM 8.7 mg/dL (8.4-10.5); POTASSIUM 4.1 mmol/L (3.6-5.0); TOTAL PROTEIN 6.7 g/dL (5.8-8.3)
--- NOTE | 2017-06-11 07:42 | CP.PCM.PN ---
Subjective - Date & Time of Evaluation Date of Evaluation: 06/11/17 Time of Evaluation: 07:38 - Subjective Subjective: PGY1 Note for Dr. Soria Patient seen and examined at bedside. Doing well with no complaints at this time. States pain is well controlled. Slept without issues. Denies fevers or chills, N/V/D. Objective - Vital Signs/Intake and Output Vital Signs (last 24 hours): Temp Pulse Resp BP Pulse Ox 99.4 F 107 H 21 150/88 98 06/11/17 00:00 06/11/17 00:00 06/11/17 00:00 06/11/17 00:00 06/11/17 00:00 Intake and Output: 06/11/17 06/11/17 06:59 18:59 Intake Total 3060 Output Total 600 Balance 2460 - Medications Medications: Current Medications Acetaminophen (Tylenol 325mg Tab) 650 mg PO Q4H PRN PRN Reason: Fever >100.5 F Last Admin: 06/10/17 00:05 Dose: 650 mg Acetaminophen (Tylenol 325mg Tab) 650 mg PO Q4 PRN PRN Reason: Pain, moderate (4-7) Alprazolam (Xanax) 0.25 mg PO TID PRN; Protocol PRN Reason: Anxiety Stop: 06/17/17 10:01 Amlodipine Besylate (Norvasc) 10 mg PO DAILY [facility] Last Admin: 06/10/17 10:27 Dose: 10 mg Hydralazine HCl (Apresoline) 50 mg PO BID [facility] Last Admin: 06/10/17 18:26 Dose: 50 mg Hydralazine HCl (Apresoline) 25 mg PO Q4 PRN PRN Reason: Other Meropenem 500 mg/ Sodium (Chloride) 50 mls @ 100 mls/hr IVPB Q12 JACQUELINE PRN Reason: Protocol Stop: 06/17/17 10:31 Last Admin: 06/10/17 11:22 Dose: 100 mls/hr Linezolid (Zyvox 600mg/300ml D5w) 600 mg in 300 mls @ 200 mls/hr IVPB Q12 JACQUELINE PRN Reason: Protocol Stop: 06/17/17 10:31 Last Admin: 06/10/17 21:52 Dose: 200 mls/hr Sodium Chloride (Sodium Chloride 0.45%) 1,000 mls @ 75 mls/hr IV .[id number] JACQUELINE Last Admin: 06/10/17 18:27 Dose: 75 mls/hr Insulin Human Regular (Humulin R Low) 0 units SC ACHS JACQUELINE PRN Reason: Protocol Last Admin: 06/10/17 22:07 Dose: Not Given Oxycodone/Acetaminophen (Percocet 5/325 Mg Tab) 1 tab PO Q6H PRN PRN Reason: Pain, severe (8-10) Stop: 06/13/17 16:57 Zolpidem Tartrate (Ambien) 5 mg PO HS PRN; Protocol PRN Reason: Insomnia Last Admin: 06/10/17 21:51 Dose: 5 mg - Labs Labs: 06/11/17 05:20 06/11/17 05:20 PT 14.1 SECONDS (9.4-12.5) H 06/09/17 20:10 INR 1.29 (0.93-1.08) H 06/09/17 20:10 APTT 24.8 Seconds (25.1-36.5) L 06/09/17 20:10 - Constitutional Appears: Well, Non-toxic, No Acute Distress - Head Exam Head Exam: ATRAUMATIC, NORMAL INSPECTION, NORMOCEPHALIC - Eye Exam Eye Exam: EOMI Pupil Exam: NORMAL ACCOMODATION - ENT Exam ENT Exam: Mucous Membranes Moist - Respiratory Exam Respiratory Exam: Clear to Ausculation Bilateral - Cardiovascular Exam Cardiovascular Exam: REGULAR RHYTHM - GI/Abdominal Exam GI & Abdominal Exam: Soft, Normal Bowel Sounds. absent: Distended, Tenderness - Extremities Exam Extremities Exam: Tenderness (Miled tenderness to palpation around I/D site. Dressing has stained blood and and puss. Not soaked. packing in place. ) - Neurological Exam Neurological Exam: Alert, Awake, Oriented x3 - Psychiatric Exam Psychiatric exam: Normal Affect, Normal Mood - Skin Skin Exam: Dry, Intact, Normal Color, Warm Assessment and Plan - Assessment and Plan (Free Text) Assessment: 42M POD#1 I/D + debridment of L. lower extremity wound Plan: * Change packing today w/ iodoform, change dressing * Pain control * PT * Further reccs per Dr. Soria * Continue medical management
--- NOTE | 2017-06-11 09:07 | US ---
PROCEDURE: Bilateral renal artery duplex ultrasound. CLINICAL HISTORY: Renal artery stenosis. Uncontrolled hypertension. Evaluate for renovascular hypertension. PHYSICIAN(S): Roberto Yan M.D. TECHNIQUE: Duplex sonography with color-flow Doppler was used to evaluate the visualized segments of the main renal arteries. The patient was evaluated in a fasting state. Imaging in a supine and decubitus position was performed. Limited evaluation of the arcuate waveforms and resistive indices were performed. FINDINGS: The exam is limited by body habitus. The main renal arteries are visualized in segments. The kidneys are normal in size, shape, and location. The right kidney measures 12.9cm in length and the left kidney measures 13.0cm in length. No solid renal masses, abnormal calcifications, or hydronephrosis is seen. The main right renal artery is visualized in segments from the aorta to the hilum. The peak systolic velocity in the right main renal artery is 88 cm/sec. This is consistent with a 0 to 49% stenosis in the main right renal artery. The arcuate waveforms are normal. The resistive index is normal. The main left renal artery is also only visualized in segments from the aorta to the hilum. The peak systolic velocity in the main left renal artery is 99cm/sec. This corresponds to a 0 to 49% stenosis in the main left renal artery. The arcuate waveforms and resistive indices are normal. IMPRESSION: 1. The main renal arteries are only visualized in segments. If clinical suspicion for renal artery stenosis is high, additional imaging with CTA, MRA, or conventional arteriogram can be considered. 2. No sonographically significant stenosis is identified. 3. The kidneys are normal and symmetric in size. There are no solid renal masses, abnormal calcifications or hydronephrosis noted.
[2017-06-11] MEDS ORDERED: HYDROmorphone 0.5 mg/0.5 ml ISec IVP STA (09:39)
[2017-06-11] MEDS: Enoxaparin 40 mg Syringe SC SCH (10:16)
--- NOTE | 2017-06-11 10:48 | CP.PCM.PN ---
Subjective - Date & Time of Evaluation Date of Evaluation: 06/11/17 Time of Evaluation: 10:00 - Subjective Subjective: Had I and D and debridement done on the left foot yesterday, no fevers overnight , feels a little better today, no nausea, no diarrhea. Objective - Vital Signs/Intake and Output Vital Signs (last 24 hours): Temp Pulse Resp BP Pulse Ox 98.7 F 98 H 20 147/77 96 06/11/17 08:30 06/11/17 08:30 06/11/17 08:30 06/11/17 08:30 06/11/17 08:30 Intake and Output: 06/11/17 06/11/17 06:59 18:59 Intake Total 3060 Output Total 600 Balance 2460 - Medications Medications: Current Medications Acetaminophen (Tylenol 325mg Tab) 650 mg PO Q4H PRN PRN Reason: Fever >100.5 F Last Admin: 06/10/17 00:05 Dose: 650 mg Acetaminophen (Tylenol 325mg Tab) 650 mg PO Q4 PRN PRN Reason: Pain, moderate (4-7) Alprazolam (Xanax) 0.25 mg PO TID PRN; Protocol PRN Reason: Anxiety Stop: 06/17/17 10:01 Amlodipine Besylate (Norvasc) 10 mg PO DAILY [facility] Last Admin: 06/10/17 10:27 Dose: 10 mg Hydralazine HCl (Apresoline) 50 mg PO BID [facility] Last Admin: 06/10/17 18:26 Dose: 50 mg Hydralazine HCl (Apresoline) 25 mg PO Q4 PRN PRN Reason: Other Meropenem 500 mg/ Sodium (Chloride) 50 mls @ 100 mls/hr IVPB Q12 [facility] PRN Reason: Protocol Stop: 06/17/17 10:31 Last Admin: 06/10/17 11:22 Dose: 100 mls/hr Linezolid (Zyvox 600mg/300ml D5w) 600 mg in 300 mls @ 200 mls/hr IVPB Q12 [facility] PRN Reason: Protocol Stop: 06/17/17 10:31 Last Admin: 06/10/17 21:52 Dose: 200 mls/hr Sodium Chloride (Sodium Chloride 0.45%) 1,000 mls @ 75 mls/hr IV .[id number] [facility] Last Admin: 06/10/17 18:27 Dose: 75 mls/hr Insulin Human Regular (Humulin R Low) 0 units SC ACHS [facility] PRN Reason: Protocol Last Admin: 06/11/17 07:35 Dose: 2 units Oxycodone/Acetaminophen (Percocet 5/325 Mg Tab) 1 tab PO Q6H PRN PRN Reason: Pain, severe (8-10) Stop: 06/13/17 16:57 Zolpidem Tartrate (Ambien) 5 mg PO HS PRN; Protocol PRN Reason: Insomnia Last Admin: 06/10/17 21:51 Dose: 5 mg - Labs Labs: 06/11/17 05:20 06/11/17 05:20 PT 14.1 SECONDS (9.4-12.5) H 06/09/17 20:10 INR 1.29 (0.93-1.08) H 06/09/17 20:10 APTT 24.8 Seconds (25.1-36.5) L 06/09/17 20:10 - Constitutional Appears: Non-toxic - Head Exam Head Exam: NORMAL INSPECTION - ENT Exam ENT Exam: Mucous Membranes Moist - Neck Exam Neck Exam: absent: Lymphadenopathy, Meningismus - Respiratory Exam Respiratory Exam: Decreased Breath Sounds. absent: Rales - Cardiovascular Exam Cardiovascular Exam: +S1, +S2 - GI/Abdominal Exam GI & Abdominal Exam: Soft. absent: Tenderness - Extremities Exam Additional comments: left foot with dressings in place Assessment and Plan - Assessment and Plan (Free Text) Plan: Assessment Severe sepsis with acute renal failure due to left diabetic foot infection with abscess and probable gangrene R/O osteomyelitis, S/P I and D and debridement POD #1 DM HTN obesity with BMI 37 Plan continue Zyvox and Merrem pending final blood and wound cx results, as well as OR pathology will continue to monitor clinically
[2017-06-11] MEDS: Linezolid 600 mg in D5W 300 ml 600 MG/300 ML BAG IVPB SCH ×2 (11:30→21:23)
--- NOTE | 2017-06-11 11:54 | PN ---
SUBJECTIVE: He went through the procedure of his left foot. He had gas gangrene and I cleaned it out, it is still swollen, little bit painful and red. He is on IV antibiotics by infectious disease and podiatry is following the wound. He is comfortable. He told me the Xanax helped him a lot and he wants more; otherwise, he is eating and is in good spirits. PHYSICAL EXAMINATION VITAL SIGNS: He has 98.7 temp, 98 pulse, 147/77 blood pressure, 20 respiratory rate, 96% O2 sat on room air. HEENT: Head is atraumatic, normocephalic. He is alert and oriented, talking to me, calm, comfortable, little pain, getting medicated. HEART: Regular rate. LUNGS: Decreased breath sounds, but clear. ABDOMEN: Soft, obese, and nontender. EXTREMITIES: Left foot is swollen but bandaged, status post procedure yesterday with podiatry. MEDICATIONS: He is currently on Ambien, Apresoline, insulin, Merrem IV, Norvasc, Percocet, IV fluids, Tylenol, Xanax and Zyvox. LABORATORY DATA: He has a 11.5 white count, coming down, 8.8 hemoglobin, that is a lot of decrease in 24 hours, but if drops below 8 I will transfuse him, hematocrit 26.5, platelets are 232. I will also put him on iron. I will check his stool for blood. He has 139 sodium, potassium 4.1, BUN is 18, creatinine is 1.7, much better than when he came in with 39 and 4. I called in Renal. He has never had acute renal failure before, hopefully, the kidney function will continue to improve. Last blood sugar was 212. He has a bunch of things going on here. We will have to tighten up his blood sugars. Hemoglobin A1c is 10.4, very high, calcium is 8.7, total bilirubin is 0.5, AST is 24, ALT is 33, alk phos is 57, total protein is 6.7. He is being seen by podiatry, renal, infectious disease. We will with aggressive treatment and care. ASSESSMENT AND PLAN: He has diabetic foot ulcer with gas gangrene, diabetes, anxiety, urinary tract infection, acute renal failure and is improving. We will get him out of bed to chair I hope. Karl Hart DO
--- NOTE | 2017-06-11 12:18 | OP ---
PROCEDURE DATE: 06/09/2017 PREOPERATIVE DIAGNOSIS: Necrotizing infection of the left foot. POSTOPERATIVE DIAGNOSIS: Necrotizing infection of the left foot. OPERATION PERFORMED: Debridement, surgical drainage. DESCRIPTION OF PROCEDURE: In the operating room, patient was identified by name, name of procedure, laterality, my maurilio, the consent form, and his wrist band. The left leg was prepped and draped in usual manner using stockinette and a soft . The malum perforans ulcer on the bottom was addressed first. It was cleaned with a scissor and a 15 blade debriding it medially and laterally to a viable bleeding tissue. A [place] was introduced to the pocket between the fourth and fifth toes by the joint, this was opened, and widely drained. On the lateral side, an abscess was opened with a blade followed by a scissor and the skin removed to viable skin, and the tissues beneath were excised with a scissor followed by the Versajet. A superior pocket was found and this was opened. Penroses were placed through the malum perforans ulcer to the incision between the fourth and fifth toes and then laterally. These were tied together into a loop so that it would not fall out. The area was then cleaned, irrigated with peroxide and widely packed with Betadine sponge. Patient was dressed and taken to recovery room in good condition after the sponge and needle counts were declared correct. Richi Soria MD
--- NOTE | 2017-06-11 13:25 | US ---
PROCEDURE: Ultrasound of the Kidneys HISTORY: IMANI COMPARISON: None available. TECHNIQUE: Sonogram of the kidneys. FINDINGS: RIGHT KIDNEY: Measures: 12.2 cm. Normal in size, contour and echogenicity. No stone, solid mass lesion or hydronephrosis visualized. LEFT KIDNEY: Measures: 11.7 cm. Normal in size, contour and echogenicity. No stone, solid mass lesion or hydronephrosis visualized. OTHER FINDINGS: None. IMPRESSION: Unremarkable renal sonogram.
--- NOTE | 2017-06-11 15:12 | CP.PCM.PN ---
Subjective - Date & Time of Evaluation Date of Evaluation: 06/11/17 Time of Evaluation: 15:10 - Subjective Subjective: Follow up Nephrology Consultation: Assessment: Stable Acute Kidney Injury (N17.9) possibly due to sepsis due to left wound infection: improved HAGMA, ketoacidosis DM, HTN, Obesity uncontrolled severe HTN Plan No acute need for renal replacement therapy at this time. Hypertension control with meds as ordered. hold ACEI/ARB due to IMANI. Monitor Input/Output, daily weights and renal function with basic metabolic panel continue with IVF anemia management as per primary team Dose meds/antibiotics for GFR >60. Avoid fleets enema/magnesium based laxatives. Avoid nephrotoxins/NSAIDs/ iodinated contrast (unless needed emergently) Glycemic control Further work up/management as per primary team Thanks for allowing me to participate in care of your patient. Will follow patient with you. Please call if any Qs. d/w team Dr Titus Neil Office: [phone] Chief Complaint; left foot wound infection Reason for consult: IMANI HPI: Pt is a 42 y/o M with hx of diabetes Mellitus ( 7 years), hypertension (7 years), obesity BMI 37 presented with complaints of left foot wound infection, worsening, for last 1 week. has associated sepsis and renal consulted for IMANI> pt not aware about kidney problems in past. ROS: feels much better. Denies chest pain, palpitation, shortness of breath, leg swelling Denies blood or bubbles in urine. feels making lot more urine Physical Examination: General Appearance: Comfortable, in no acute respiratory distress, co-operative . obese Vitals reviewed and noted as below Head; Atraumatic, normocephalic ENT: no ulcers no thrush. Tongue is midline. Oropharynx: no rash or ulcers. EYES: Pupils are equal, round and reactive to light accommodation. Eye muscles and extraocular movement intact. Sclera is anicteric. Neck; supple no lymphadenopathy, no thyromegaly or bruit Lungs: Normal respiratory rate/effort. Breath sounds bilateral equal and clear Heart:normal rate. s1s2 normal. No rub or gallop. Extremities: no edema. No varicose veins. LEft foot dressed, Neurological: Patient is alert, awake and oriented to person, place and time. No focal deficit. Strength bilateral appropriate and equal Skin: Warm and dry. Normal turgor. No rash. Palpitation: Normal elasticity for age Abdomen: Abdomen is soft. Bowel sounds +. There is no abdominal tenderness, no guarding/rigidity no organomegaly Psych: normal insight and normal affect/mood MSK: no joint tenderness or swelling. Digits and nails normal, no deformity : kidney or bladder not palpable Labs/imaging/EKG reviewed. Past medical history, past surgical history, family history, social history, allergy reviewed and noted as below Family hx: no hx of CKD. Rest non-contributory Objective - Vital Signs/Intake and Output Vital Signs (last 24 hours): Temp Pulse Resp BP Pulse Ox 98.7 F 99 H 20 125/80 96 06/11/17 08:30 06/11/17 10:00 06/11/17 08:30 06/11/17 10:16 06/11/17 08:30 Intake and Output: 06/11/17 06/11/17 06:59 18:59 Intake Total 3060 1020 Output Total 600 Balance 2460 1020 - Medications Medications: Current Medications Acetaminophen (Tylenol 325mg Tab) 650 mg PO Q4H PRN PRN Reason: Fever >100.5 F Last Admin: 06/10/17 00:05 Dose: 650 mg Acetaminophen (Tylenol 325mg Tab) 650 mg PO Q4 PRN PRN Reason: Pain, moderate (4-7) Alprazolam (Xanax) 0.25 mg PO TID PRN; Protocol PRN Reason: Anxiety Stop: 06/17/17 10:01 Amlodipine Besylate (Norvasc) 10 mg PO DAILY [facility] Last Admin: 06/11/17 10:16 Dose: 10 mg Enoxaparin Sodium (Lovenox) 40 mg SC DAILY [facility] PRN Reason: Protocol Last Admin: 06/11/17 10:16 Dose: 40 mg Glipizide (Glucotrol) 10 mg PO BID [facility] Last Admin: 06/11/17 10:16 Dose: 10 mg Hydralazine HCl (Apresoline) 50 mg PO BID [facility] Last Admin: 06/11/17 10:16 Dose: 50 mg Hydralazine HCl (Apresoline) 25 mg PO Q4 PRN PRN Reason: Other Linezolid (Zyvox 600mg/300ml D5w) 600 mg in 300 mls @ 200 mls/hr IVPB Q12 [facility] PRN Reason: Protocol Stop: 06/17/17 10:31 Last Admin: 06/10/17 21:52 Dose: 200 mls/hr Sodium Chloride (Sodium Chloride 0.45%) 1,000 mls @ 75 mls/hr IV .[id number] [facility] Last Admin: 06/10/17 18:27 Dose: 75 mls/hr Meropenem 1 gm/ Dextrose 100 mls @ 100 mls/hr IVPB Q12 [facility] Stop: 06/17/17 10:31 Last Admin: 06/11/17 10:17 Dose: 100 mls/hr Insulin Human Regular (Humulin R Low) 0 units SC ACHS [facility] PRN Reason: Protocol Last Admin: 06/11/17 11:42 Dose: 2 units Metformin HCl (Glucophage) 1,000 mg PO BID [facility] Oxychlorosene Sodium (Clorpactin Wcs-90) 2 gm TOP DAILY [facility] Oxycodone/Acetaminophen (Percocet 5/325 Mg Tab) 1 tab PO Q6H PRN PRN Reason: Pain, severe (8-10) Stop: 06/13/17 16:57 Zolpidem Tartrate (Ambien) 5 mg PO HS PRN; Protocol PRN Reason: Insomnia Last Admin: 06/10/17 21:51 Dose: 5 mg - Labs Labs: 06/11/17 05:20 06/11/17 05:20 PT 14.1 SECONDS (9.4-12.5) H 06/09/17 20:10 INR 1.29 (0.93-1.08) H 06/09/17 20:10 APTT 24.8 Seconds (25.1-36.5) L 06/09/17 20:10
--- NOTE | 2017-06-11 16:23 | CP.PCM.PN ---
Subjective - Date & Time of Evaluation Date of Evaluation: 06/11/17 Time of Evaluation: 16:20 - Subjective Subjective: 42 y/o male seen and evaluated at bedside with attending Dr. Chou 1 day s/p I &D of the left foot. Patient is resting comfortably in his bed and is in NAD. Patient denies of any acute overnight events, F/N/V/C/SOB/CP and is AAOx3. Denies of any pain in his left foot. Denies of any pedal complains at this time. Objective - Vital Signs/Intake and Output Vital Signs (last 24 hours): Temp Pulse Resp BP Pulse Ox 98.9 F 84 20 140/70 98 06/11/17 16:00 06/11/17 16:00 06/11/17 16:00 06/11/17 16:00 06/11/17 16:00 Intake and Output: 06/11/17 06/11/17 06:59 18:59 Intake Total 3060 1020 Output Total 600 Balance 2460 1020 - Medications Medications: Current Medications Acetaminophen (Tylenol 325mg Tab) 650 mg PO Q4H PRN PRN Reason: Fever >100.5 F Last Admin: 06/10/17 00:05 Dose: 650 mg Acetaminophen (Tylenol 325mg Tab) 650 mg PO Q4 PRN PRN Reason: Pain, moderate (4-7) Alprazolam (Xanax) 0.25 mg PO TID PRN; Protocol PRN Reason: Anxiety Stop: 06/17/17 10:01 Amlodipine Besylate (Norvasc) 10 mg PO DAILY [facility] Last Admin: 06/11/17 10:16 Dose: 10 mg Enoxaparin Sodium (Lovenox) 40 mg SC DAILY [facility] PRN Reason: Protocol Last Admin: 06/11/17 10:16 Dose: 40 mg Glipizide (Glucotrol) 10 mg PO BID [facility] Last Admin: 06/11/17 10:16 Dose: 10 mg Hydralazine HCl (Apresoline) 50 mg PO BID [facility] Last Admin: 06/11/17 10:16 Dose: 50 mg Hydralazine HCl (Apresoline) 25 mg PO Q4 PRN PRN Reason: Other Linezolid (Zyvox 600mg/300ml D5w) 600 mg in 300 mls @ 200 mls/hr IVPB Q12 [facility] PRN Reason: Protocol Stop: 06/17/17 10:31 Last Admin: 06/11/17 11:30 Dose: 200 mls/hr Sodium Chloride (Sodium Chloride 0.45%) 1,000 mls @ 75 mls/hr IV .[id number] [facility] Last Admin: 06/10/17 18:27 Dose: 75 mls/hr Meropenem 1 gm/ Dextrose 100 mls @ 100 mls/hr IVPB Q12 [facility] Stop: 06/17/17 10:31 Last Admin: 06/11/17 10:17 Dose: 100 mls/hr Insulin Human Regular (Humulin R Low) 0 units SC ACHS [facility] PRN Reason: Protocol Last Admin: 06/11/17 11:42 Dose: 2 units Metformin HCl (Glucophage) 1,000 mg PO BID [facility] Oxychlorosene Sodium (Clorpactin Wcs-90) 2 gm TOP DAILY [facility] Oxycodone/Acetaminophen (Percocet 5/325 Mg Tab) 1 tab PO Q6H PRN PRN Reason: Pain, severe (8-10) Stop: 06/13/17 16:57 Zolpidem Tartrate (Ambien) 5 mg PO HS PRN; Protocol PRN Reason: Insomnia Last Admin: 06/10/17 21:51 Dose: 5 mg - Labs Labs: 06/11/17 05:20 06/11/17 05:20 PT 14.1 SECONDS (9.4-12.5) H 06/09/17 20:10 INR 1.29 (0.93-1.08) H 06/09/17 20:10 APTT 24.8 Seconds (25.1-36.5) L 06/09/17 20:10 - Constitutional Appears: Well, Non-toxic, No Acute Distress - Extremities Exam Extremities Exam: absent: Calf Tenderness Additional comments: Bilateral LE focused exam: VASC: DP/PT pulses are palpable 2/4, Cap refill time: < 3 sec to all digits, Temp gradient: warm to cool on the right and warm to warm on the left from proximal to distal, non-pitting edema noted on the dorsum and lateral aspect of the left foot extending to the ankle joint DERM: Erythema extending from the dorsum, and lateral aspect of the left foot to the ankle appears to be resolving and is confined to the dorsolateral and plantar lateral aspect of the left foot, Surgical wound present at the level of plantar 5th metatarsal head which measures approx. 2.0 cmx 2.0 cm x 0.5 cm, wound base is fibro-granular with necrotic tissue at the edges and macerated wound border - probe to bone present with no active drainage at this time, similar surgical wound present on the dorsum of the 5th metatarsal head, small surgical stab noted in the 4th interspace, malodor appears to be resolving from yesterday, no fluctuance noted palpation of the dorsolateral, plantarlateral and 4th interspace of the left foot NEURO: Protective sensation grossly intact ORTHO: mild pain on palpation of the wound site - Neurological Exam Neurological Exam: Alert, Awake, Oriented x3 - Psychiatric Exam Psychiatric exam: Normal Affect, Normal Mood Assessment and Plan - Assessment and Plan (Free Text) Assessment: 42 y/o male evaluated at bedside 1 day s/p I&D of of the left foot for abscess with soft tissue emphysema Plan: Patient seen and evaluated at bedside with attending Dr. Chou Labs, vitals and, charts reviewed - febrile with WBC @ 11.5 (trending down) Surgical dressing left intact - kristen drain intact with packing present in plantar and dorsal lateral surgical wound Left foot x-ray prior to the I&D procedure - diffuse radiolucensy on the lateral aspect of the left foot as well as the 4th interspace indicating gas MRI of the left foot ordered - pending Clorpactin ordered - will flush out the wound and will re-pack the wound tomorrow Multipodus boots ordered - keep them on while in bed Podiatry to follow patient while in-house
[2017-06-11] MEDS: Sodium Chloride 0.45% 1,000 ML IV SCH ×2 (21:16)
[2017-06-12 06:40] LABS: HEMATOCRIT 27.4 % (42.0-52.0); MEAN CELL VOLUME 90.7 fl (80.0-105.0); MEAN CORPUSCULAR HEMOGLOBIN 30.1 pg (25.0-35.0); MEAN CORPUSCULAR HGB CONC 33.2 g/dl (31.0-37.0); MEAN PLATELET VOLUME 9.9 fl (7.0-11.0); RED CELL DISTRIBUTION WIDTH 12.3 % (11.5-14.5)
[2017-06-12] MEDS ORDERED: Sodium Chloride 0.45% 1,000 ML IV SCH (07:20)
[2017-06-12 07:26] LABS: ALB/GLOB RATIO 0.9 (1.1-1.8); ALKALINE PHOSPHATASE 60 U/L (38-126); ALT/SGPT 29 U/L (7-56); AST/SGOT 24 U/L (17-59); BILIRUBIN,TOTAL 0.5 mg/dL (0.2-1.3); BLOOD UREA NITROGEN 10 mg/dL (7-21); CALCIUM 8.3 mg/dL (8.4-10.5); CARBON DIOXIDE 22 mmol/L (21-33); CHLORIDE 108 mmol/L (98-107); GFR AFRICAN-AMERICAN > 60; GLUCOSE,RANDOM 133 mg/dL (70-110); POTASSIUM 3.8 mmol/L (3.6-5.0); SODIUM 138 mmol/L (132-148); TOTAL PROTEIN 6.5 g/dL (5.8-8.3)
[2017-06-12] MEDS: Insulin Reg-LOW-Coverage SC SCH ×4 (08:17→22:00)
[2017-06-12] MEDS: Enoxaparin 40 mg Syringe SC SCH (09:22)
[2017-06-12] MEDS ORDERED: Dakin's Topical 0.5%-Full Strength (480 ml) TOP SCH (10:00)
--- NOTE | 2017-06-12 10:01 | MRI ---
PROCEDURE: MRI of the left foot without contrast HISTORY: ulcer abcess 5th met COMPARISON: TECHNIQUE: MRI of the left foot was performed in multiple planes using multiple pulse sequences. FINDINGS: There is a soft tissue ulcer near the head of the 5th metatarsal. There is no evidence of abscess. There is a mild amount of marrow edema in the 5th proximal phalanx and minimal edema in the metatarsal head. This could represent early osteomyelitis. The report concurs with the preliminary [facility] report IMPRESSION: Soft tissue ulcer on the plantar aspect near the 5th metatarsal head. There is a mild amount of marrow edema in the 5th proximal phalanx and minimal edema in the metatarsal head. This could represent early osteomyelitis.
--- NOTE | 2017-06-12 10:03 | CP.PCM.PN ---
Subjective - Date & Time of Evaluation Date of Evaluation: 06/12/17 Time of Evaluation: 09:59 - Subjective Subjective: PGY1 Note for Dr. Soria Patient seen and examined at bedside. Doing well with no complaints at this time. Pain free. Able to ambulate without difficulty. No fever or chills Objective - Vital Signs/Intake and Output Vital Signs (last 24 hours): Temp Pulse Resp BP Pulse Ox 98.1 F 92 H 20 139/81 96 06/12/17 08:20 06/12/17 08:20 06/12/17 08:20 06/12/17 09:23 06/12/17 08:20 Intake and Output: 06/12/17 06/12/17 06:59 18:59 Intake Total 3065 480 Output Total 1400 500 Balance 1665 -20 - Medications Medications: Current Medications Acetaminophen (Tylenol 325mg Tab) 650 mg PO Q4H PRN PRN Reason: Fever >100.5 F Last Admin: 06/10/17 00:05 Dose: 650 mg Acetaminophen (Tylenol 325mg Tab) 650 mg PO Q4 PRN PRN Reason: Pain, moderate (4-7) Alprazolam (Xanax) 0.25 mg PO TID PRN; Protocol PRN Reason: Anxiety Stop: 06/17/17 10:01 Amlodipine Besylate (Norvasc) [address] [facility] Last Admin: 06/12/17 09:22 Dose: 10 mg Enoxaparin Sodium (Lovenox) 40 mg SC DAILY [facility] PRN Reason: Protocol Last Admin: 06/12/17 09:22 Dose: 40 mg Glipizide (Glucotrol) [address] [facility] Last Admin: 06/12/17 09:23 Dose: 10 mg Hydralazine HCl (Apresoline) [address] [facility] Last Admin: 06/12/17 09:23 Dose: 50 mg Hydralazine HCl (Apresoline) 25 mg PO Q4 PRN PRN Reason: Other Linezolid (Zyvox 600mg/300ml D5w) 600 mg in 300 mls @ 200 mls/hr IVPB Q12 [facility] PRN Reason: Protocol Stop: 06/17/17 10:31 Last Admin: 06/11/17 21:23 Dose: 200 mls/hr Meropenem 1 gm/ Dextrose 100 mls @ 100 mls/hr IVPB Q12 [facility] Stop: 06/17/17 10:31 Last Admin: 06/12/17 09:23 Dose: 100 mls/hr Sodium Chloride (Sodium Chloride 0.45%) 1,000 mls @ 40 mls/hr IV .Q24H [facility] Last Admin: 06/12/17 07:30 Dose: 40 mls/hr Insulin Human Regular (Humulin R Low) 0 units SC ACHS [facility] PRN Reason: Protocol Last Admin: 06/12/17 08:17 Dose: Not Given Metformin HCl (Glucophage) 1,000 mg PO BID [facility] Last Admin: 06/11/17 21:16 Dose: Not Given Oxychlorosene Sodium (Clorpactin Wcs-90) [address] [facility] Oxycodone/Acetaminophen (Percocet 5/325 Mg Tab) 1 tab PO Q6H PRN PRN Reason: Pain, severe (8-10) Stop: 06/13/17 16:57 Zolpidem Tartrate (Ambien) 5 mg PO HS PRN; Protocol PRN Reason: Insomnia Last Admin: 06/11/17 21:27 Dose: 5 mg - Labs Labs: 06/12/17 06:00 06/12/17 06:00 PT 14.1 SECONDS (9.4-12.5) H 06/09/17 20:10 INR 1.29 (0.93-1.08) H 06/09/17 20:10 APTT 24.8 Seconds (25.1-36.5) L 06/09/17 20:10 - Constitutional Appears: Well, Non-toxic, No Acute Distress - Head Exam Head Exam: ATRAUMATIC, NORMAL INSPECTION, NORMOCEPHALIC - Eye Exam Eye Exam: EOMI Pupil Exam: NORMAL ACCOMODATION - ENT Exam ENT Exam: Mucous Membranes Moist, Normal Oropharynx - Cardiovascular Exam Cardiovascular Exam: REGULAR RHYTHM - GI/Abdominal Exam GI & Abdominal Exam: Soft, Normal Bowel Sounds. absent: Distended, Tenderness - Extremities Exam Extremities Exam: absent: Joint Swelling, Tenderness Additional comments: packing in place in all 3 L. foot wound with two drains. 20% of wound has tissue present. Surrounded by areas of healthy granulation tissue - Neurological Exam Neurological Exam: Alert, Awake, Oriented x3 - Psychiatric Exam Psychiatric exam: Normal Affect, Normal Mood - Skin Skin Exam: Dry, Intact, Normal Color, Warm Assessment and Plan - Assessment and Plan (Free Text) Assessment: 42M POD 2 s/p I/d of Left Foot wound Plan: * no further surgical intervention needed at this time * continue dressing changes per podiatry * continue medical management * Further reccs per Dr. Soria
[2017-06-12] MEDS: Linezolid 600 mg in D5W 300 ml 600 MG/300 ML BAG IVPB SCH ×2 (10:06→21:27)
--- NOTE | 2017-06-12 10:38 | PN ---
DATE: SUBJECTIVE: I saw Shant resting comfortably in bed this morning. He slept fairly well, but foot has got some pain, but not too terrible. He is eating well, does not like the food, and he is on multiple IVs. He is being seen by Podiatry, Renal, Surgery, and Infectious Disease. PHYSICAL EXAMINATION: VITAL SIGNS: Today, 98.9 temp, 84 pulse, 140/70 blood pressure, 20 respiratory rate, and 98% O2 sat on room air. HEENT: Head is atraumatic and normocephalic. Throat is moist. NECK: Supple. HEART: Regular rate. LUNGS: Decreased breath sounds, but clear to auscultation. ABDOMEN: Soft. Obese. Nontender. EXTREMITIES: The left foot is wrapped up. LABORATORY DATA: He has a 9 white count better, 9.1 hemoglobin, 27.4 hematocrit, with 248 platelets. His chemistry is not back yet. His blood sugars are now 137, 207, 279, which are better than it was in the 300s. He also had a gram-positive cocci in the wound, and his MRI showed osteomyelitis in the toe. He is going to have a PICC line and 6 weeks of IV antibiotics Rehabilitation Medicine Physician help us for long-term IV antibiotics as per ID. We will wait for the kidney functions to come back this morning, I do not have the results, I am hoping that they continue to improve. They were as bad as a 4 creatinine is now down to 1.7 and I want it to even get better. MEDICATIONS: He is on Ambien, Apresoline, Clorpactin, Glucophage, Glucotrol, insulin coverage, Lovenox, Merrem IV, Norvasc, Percocet for pain, IV fluids, Tylenol, Xanax, and Zyvox. I will decrease the IV fluid rate from 75 to 40. PLAN: We will continue with aggressive treatment and care on Shant [place], who now has osteo of the left foot toe, acute renal failure, gas gangrene, UTI, anxiety, and diabetes. Karl Hart DO [id number]
--- NOTE | 2017-06-12 11:10 | CP.PCM.PN ---
Subjective - Date & Time of Evaluation Date of Evaluation: 06/12/17 Time of Evaluation: 10:20 - Subjective Subjective: Comfortable in bed, less pain in the left foot, no fevers overnight, no nausea or diarrhea. Objective - Vital Signs/Intake and Output Vital Signs (last 24 hours): Temp Pulse Resp BP Pulse Ox 98.1 F 92 H 20 139/81 96 06/12/17 08:20 06/12/17 08:20 06/12/17 08:20 06/12/17 08:20 06/12/17 08:20 Intake and Output: 06/12/17 06/12/17 06:59 18:59 Intake Total 3065 480 Output Total 1400 500 Balance 1665 -20 - Medications Medications: Current Medications Acetaminophen (Tylenol 325mg Tab) 650 mg PO Q4H PRN PRN Reason: Fever >100.5 F Last Admin: 06/10/17 00:05 Dose: 650 mg Acetaminophen (Tylenol 325mg Tab) 650 mg PO Q4 PRN PRN Reason: Pain, moderate (4-7) Alprazolam (Xanax) 0.25 mg PO TID PRN; Protocol PRN Reason: Anxiety Stop: 06/17/17 10:01 Amlodipine Besylate (Norvasc) 10 mg PO DAILY [facility] Last Admin: 06/11/17 10:16 Dose: 10 mg Enoxaparin Sodium (Lovenox) 40 mg SC DAILY [facility] PRN Reason: Protocol Last Admin: 06/11/17 10:16 Dose: 40 mg Glipizide (Glucotrol) 10 mg PO BID [facility] Last Admin: 06/11/17 17:18 Dose: 10 mg Hydralazine HCl (Apresoline) 50 mg PO BID [facility] Last Admin: 06/11/17 17:18 Dose: 50 mg Hydralazine HCl (Apresoline) 25 mg PO Q4 PRN PRN Reason: Other Linezolid (Zyvox 600mg/300ml D5w) 600 mg in 300 mls @ 200 mls/hr IVPB Q12 [facility] PRN Reason: Protocol Stop: 06/17/17 10:31 Last Admin: 06/11/17 21:23 Dose: 200 mls/hr Meropenem 1 gm/ Dextrose 100 mls @ 100 mls/hr IVPB Q12 [facility]INE Stop: 06/17/17 10:31 Last Admin: 06/11/17 21:30 Dose: 100 mls/hr Sodium Chloride (Sodium Chloride 0.45%) 1,000 mls @ 40 mls/hr IV .Q24H [facility] Last Admin: 06/12/17 07:30 Dose: 40 mls/hr Insulin Human Regular (Humulin R Low) 0 units SC ACHS [facility] PRN Reason: Protocol Last Admin: 06/12/17 08:17 Dose: Not Given Metformin HCl (Glucophage) 1,000 mg PO BID [facility] Last Admin: 06/11/17 21:16 Dose: Not Given Oxychlorosene Sodium (Clorpactin Wcs-90) 2 gm TOP DAILY [facility] Oxycodone/Acetaminophen (Percocet 5/325 Mg Tab) 1 tab PO Q6H PRN PRN Reason: Pain, severe (8-10) Stop: 06/13/17 16:57 Zolpidem Tartrate (Ambien) 5 mg PO HS PRN; Protocol PRN Reason: Insomnia Last Admin: 06/11/17 21:27 Dose: 5 mg - Labs Labs: 06/12/17 06:00 06/12/17 06:00 PT 14.1 SECONDS (9.4-12.5) H 06/09/17 20:10 INR 1.29 (0.93-1.08) H 06/09/17 20:10 APTT 24.8 Seconds (25.1-36.5) L 06/09/17 20:10 - Constitutional Appears: Non-toxic, No Acute Distress - Head Exam Head Exam: NORMAL INSPECTION - ENT Exam ENT Exam: Mucous Membranes Moist - Neck Exam Neck Exam: absent: Lymphadenopathy, Meningismus - Respiratory Exam Respiratory Exam: absent: Rales, Rhonchi - Cardiovascular Exam Cardiovascular Exam: +S1, +S2 - GI/Abdominal Exam GI & Abdominal Exam: Soft. absent: Tenderness - Extremities Exam Additional comments: left foot with dressings in place Assessment and Plan - Assessment and Plan (Free Text) Plan: Assessment Severe sepsis with acute renal failure (resolved) due to left diabetic foot infection with abscess and probable gangrene and necrotizing infection with early osteomyelitis of the 5th proximal phalanx as seen on MRI, S/P I and D and debridement POD #2 DM HTN obesity with BMI 37 Plan continue Zyvox and Merrem pending final blood and wound cx results, as well as OR pathology - will need 4-6 weeks of antibiotics will continue to monitor clinically discussed with Dr. Hart
--- NOTE | 2017-06-12 14:51 | CP.PCM.PN ---
Subjective - Date & Time of Evaluation Date of Evaluation: 06/12/17 Time of Evaluation: 14:50 - Subjective Subjective: Follow up Nephrology Consultation: Assessment: Stable Acute Kidney Injury (N17.9) possibly due to sepsis due to left wound infection ( s/p I and D): improved HAGMA, ketoacidosis DM, HTN, Obesity uncontrolled severe HTN now better Plan No acute need for renal replacement therapy at this time. Hypertension control with meds as ordered. held ACEI/ARB due to IMANI, may resume at discharge. Monitor Input/Output, daily weights and renal function with basic metabolic panel can d/c IVF anemia management as per primary team Dose meds/antibiotics for GFR >60. Avoid fleets enema/magnesium based laxatives. Avoid nephrotoxins/NSAIDs/ iodinated contrast (unless needed emergently) Glycemic control Further work up/management as per primary team Thanks for allowing me to participate in care of your patient. Will follow patient with you. Please call if any Qs. Dr Titus Neil Office: [phone] Chief Complaint; left foot wound infection Reason for consult: IMANI HPI: Pt is a 42 y/o M with hx of diabetes Mellitus ( 7 years), hypertension (7 years), obesity BMI 37 presented with complaints of left foot wound infection, worsening, for last 1 week. has associated sepsis and renal consulted for IMANI> pt not aware about kidney problems in past. ROS: feels much better. Denies chest pain, palpitation, shortness of breath, leg swelling Denies blood or bubbles in urine. feels making lot more urine Physical Examination: General Appearance: Comfortable, in no acute respiratory distress, co-operative . obese Vitals reviewed and noted as below Head; Atraumatic, normocephalic ENT: no ulcers no thrush. Tongue is midline. Oropharynx: no rash or ulcers. EYES: Pupils are equal, round and reactive to light accommodation. Eye muscles and extraocular movement intact. Sclera is anicteric. Neck; supple no lymphadenopathy, no thyromegaly or bruit Lungs: Normal respiratory rate/effort. Breath sounds bilateral equal and clear Heart:normal rate. s1s2 normal. No rub or gallop. Extremities: no edema. No varicose veins. LEft foot dressed, Neurological: Patient is alert, awake and oriented to person, place and time. No focal deficit. Strength bilateral appropriate and equal Skin: Warm and dry. Normal turgor. No rash. Palpitation: Normal elasticity for age Abdomen: Abdomen is soft. Bowel sounds +. There is no abdominal tenderness, no guarding/rigidity no organomegaly Psych: normal insight and normal affect/mood MSK: no joint tenderness or swelling. Digits and nails normal, no deformity : kidney or bladder not palpable Labs/imaging/EKG reviewed. Past medical history, past surgical history, family history, social history, allergy reviewed and noted as below Family hx: no hx of CKD. Rest non-contributory Objective - Vital Signs/Intake and Output Vital Signs (last 24 hours): Temp Pulse Resp BP Pulse Ox 98.1 F 104 H 20 139/81 96 06/12/17 08:20 06/12/17 10:00 06/12/17 08:20 06/12/17 09:23 06/12/17 08:20 Intake and Output: 06/12/17 06/12/17 06:59 18:59 Intake Total 3065 1680 Output Total 1400 500 Balance 1665 1180 - Medications Medications: Current Medications Acetaminophen (Tylenol 325mg Tab) 650 mg PO Q4H PRN PRN Reason: Fever >100.5 F Last Admin: 06/10/17 00:05 Dose: 650 mg Acetaminophen (Tylenol 325mg Tab) 650 mg PO Q4 PRN PRN Reason: Pain, moderate (4-7) Alprazolam (Xanax) 0.25 mg PO TID PRN; Protocol PRN Reason: Anxiety Stop: 06/17/17 10:01 Amlodipine Besylate (Norvasc) 10 mg PO DAILY [facility] Last Admin: 06/12/17 09:22 Dose: 10 mg Enoxaparin Sodium (Lovenox) 40 mg SC DAILY [facility] PRN Reason: Protocol Last Admin: 06/12/17 09:22 Dose: 40 mg Glipizide (Glucotrol) 10 mg PO BID [facility] Last Admin: 06/12/17 09:23 Dose: 10 mg Hydralazine HCl (Apresoline) 50 mg PO BID [facility] Last Admin: 06/12/17 09:23 Dose: 50 mg Hydralazine HCl (Apresoline) 25 mg PO Q4 PRN PRN Reason: Other Linezolid (Zyvox 600mg/300ml D5w) 600 mg in 300 mls @ 200 mls/hr IVPB Q12 [facility] PRN Reason: Protocol Stop: 06/17/17 10:31 Last Admin: 06/12/17 10:06 Dose: 200 mls/hr Meropenem 1 gm/ Dextrose 100 mls @ 100 mls/hr IVPB Q12 [facility]INE Stop: 06/17/17 10:31 Last Admin: 06/12/17 09:23 Dose: 100 mls/hr Sodium Chloride (Sodium Chloride 0.45%) 1,000 mls @ 40 mls/hr IV .Q24H [facility] Last Admin: 06/12/17 07:30 Dose: 40 mls/hr Insulin Human Regular (Humulin R Low) 0 units SC ACHS [facility] PRN Reason: Protocol Last Admin: 06/12/17 11:49 Dose: 3 units Metformin HCl (Glucophage) 1,000 mg PO BID [facility] Last Admin: 06/11/17 21:16 Dose: Not Given Oxychlorosene Sodium (Clorpactin Wcs-90) 2 gm TOP DAILY [facility] Oxycodone/Acetaminophen (Percocet 5/325 Mg Tab) 1 tab PO Q6H PRN PRN Reason: Pain, severe (8-10) Stop: 06/13/17 16:57 Zolpidem Tartrate (Ambien) 5 mg PO HS PRN; Protocol PRN Reason: Insomnia Last Admin: 06/11/17 21:27 Dose: 5 mg - Labs Labs: 06/12/17 06:00 06/12/17 06:00 PT 14.1 SECONDS (9.4-12.5) H 06/09/17 20:10 INR 1.29 (0.93-1.08) H 06/09/17 20:10 APTT 24.8 Seconds (25.1-36.5) L 06/09/17 20:10
--- NOTE | 2017-06-12 16:42 | CP.PCM.PN ---
Subjective - Date & Time of Evaluation Date of Evaluation: 06/12/17 Time of Evaluation: 04:15 - Subjective Subjective: Pt seen at bedside s/p I&D by Dr Soria 2 days ago - pt states he feels better and denies fever or chills; Dressing is intact - he is using multipodus boot as instructed; +breakthrough drainage noted Objective - Vital Signs/Intake and Output Vital Signs (last 24 hours): Temp Pulse Resp BP Pulse Ox 99.3 F 101 H 20 123/79 96 06/12/17 16:00 06/12/17 16:00 06/12/17 16:00 06/12/17 16:00 06/12/17 16:00 Intake and Output: 06/12/17 06/12/17 06:59 18:59 Intake Total 3065 1680 Output Total 1400 500 Balance 1665 1180 - Medications Medications: Current Medications Acetaminophen (Tylenol 325mg Tab) 650 mg PO Q4H PRN PRN Reason: Fever >100.5 F Last Admin: 06/10/17 00:05 Dose: 650 mg Acetaminophen (Tylenol 325mg Tab) 650 mg PO Q4 PRN PRN Reason: Pain, moderate (4-7) Alprazolam (Xanax) 0.25 mg PO TID PRN; Protocol PRN Reason: Anxiety Stop: 06/17/17 10:01 Amlodipine Besylate (Norvasc) 10 mg PO DAILY [facility] Last Admin: 06/12/17 09:22 Dose: 10 mg Enoxaparin Sodium (Lovenox) 40 mg SC DAILY [facility] PRN Reason: Protocol Last Admin: 06/12/17 09:22 Dose: 40 mg Glipizide (Glucotrol) 10 mg PO BID [facility] Last Admin: 06/12/17 09:23 Dose: 10 mg Hydralazine HCl (Apresoline) 50 mg PO BID [facility] Last Admin: 06/12/17 09:23 Dose: 50 mg Hydralazine HCl (Apresoline) 25 mg PO Q4 PRN PRN Reason: Other Linezolid (Zyvox 600mg/300ml D5w) 600 mg in 300 mls @ 200 mls/hr IVPB Q12 [facility]INE PRN Reason: Protocol Stop: 06/17/17 10:31 Last Admin: 06/12/17 10:06 Dose: 200 mls/hr Meropenem 1 gm/ Dextrose 100 mls @ 100 mls/hr IVPB Q12 [facility]QU[facility]INE Stop: 06/17/17 10:31 Last Admin: 06/12/17 09:23 Dose: 100 mls/hr Sodium Chloride (Sodium Chloride 0.45%) 1,000 mls @ 40 mls/hr IV .Q24H [facility] Last Admin: 06/12/17 07:30 Dose: 40 mls/hr Insulin Human Regular (Humulin R Low) 0 units SC ACHS [facility] PRN Reason: Protocol Last Admin: 06/12/17 11:49 Dose: 3 units Metformin HCl (Glucophage) 1,000 mg PO BID [facility] Last Admin: 06/11/17 21:16 Dose: Not Given Oxychlorosene Sodium (Clorpactin Wcs-90) 2 gm TOP DAILY [facility] Oxycodone/Acetaminophen (Percocet 5/325 Mg Tab) 1 tab PO Q6H PRN PRN Reason: Pain, severe (8-10) Stop: 06/13/17 16:57 Zolpidem Tartrate (Ambien) 5 mg PO HS PRN; Protocol PRN Reason: Insomnia Last Admin: 06/11/17 21:27 Dose: 5 mg - Labs Labs: 06/12/17 06:00 06/12/17 06:00 PT 14.1 SECONDS (9.4-12.5) H 06/09/17 20:10 INR 1.29 (0.93-1.08) H 06/09/17 20:10 APTT 24.8 Seconds (25.1-36.5) L 06/09/17 20:10 - Constitutional Appears: Well, Non-toxic - Exam External exam: Ecchymosis, Erythema, Swelling - Extremities Exam Extremities Exam: Normal Capillary Refill, Pedal Edema. absent: Calf Tenderness , Tenderness Additional comments: Pt with surgical wound on right lateral foot with kristen drain and packing; there is a ulcer on plantar foot which was the cause of the infection; this wound probes to bone; the incision sites on the dorsal foot is with yellow slough in the wound bed - there is no longer any purulence coming from the wound with compression of the foot; the cellulitis is receding - there is still a +3 edema to the foot and there is still a residual malodor coming from the plantar wound Assessment and Plan - Assessment and Plan (Free Text) Assessment: [place] 3 ulcer to the left foot with osteomyelitis of the 5th toe and metatarsal left foot s/p gas gangrene Plan: IV antibiotics as per ID pt needs PICC line for snf IV antibiotics wedge shoe on orer 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
[2017-06-13 00:51] VITALS: RESP 20
[2017-06-13 06:27] LABS: HEMATOCRIT 28.8 % (42.0-52.0); MEAN CELL VOLUME 91.1 fl (80.0-105.0); MEAN CORPUSCULAR HEMOGLOBIN 30.4 pg (25.0-35.0); MEAN CORPUSCULAR HGB CONC 33.3 g/dl (31.0-37.0); MEAN PLATELET VOLUME 9.7 fl (7.0-11.0); RED CELL DISTRIBUTION WIDTH 12.1 % (11.5-14.5); WHITE BLOOD COUNT 6.9 10^3/ul (4.5-11.0)
[2017-06-13 07:16] LABS: ALB/GLOB RATIO 0.9 (1.1-1.8); ALKALINE PHOSPHATASE 58 U/L (38-126); ALT/SGPT 40 U/L (7-56); AST/SGOT 35 U/L (17-59); BILIRUBIN,TOTAL 0.5 mg/dL (0.2-1.3); BLOOD UREA NITROGEN 8 mg/dL (7-21); CALCIUM 8.5 mg/dL (8.4-10.5); CARBON DIOXIDE 27 mmol/L (21-33); CHLORIDE 105 mmol/L (98-107); GFR AFRICAN-AMERICAN > 60; GLUCOSE,RANDOM 189 mg/dL (70-110); POTASSIUM 4.2 mmol/L (3.6-5.0); SODIUM 140 mmol/L (132-148); TOTAL PROTEIN 6.9 g/dL (5.8-8.3)
--- NOTE | 2017-06-13 08:13 | CP.PCM.PN ---
Subjective - Date & Time of Evaluation Date of Evaluation: 06/13/17 Time of Evaluation: 08:10 - Subjective Subjective: PGY1 Note for Dr. Soria Patient seen and examined at bedside. Doing well with no complaints at this time. No fevers or chills, ambulating without difficulty. Objective - Vital Signs/Intake and Output Vital Signs (last 24 hours): Temp Pulse Resp BP Pulse Ox 97.7 F 90 20 136/76 97 06/13/17 08:05 06/13/17 08:05 06/13/17 08:05 06/13/17 08:05 06/13/17 08:05 Intake and Output: 06/13/17 06/13/17 06:59 18:59 Intake Total 1500 Output Total 1000 Balance 500 - Medications Medications: Current Medications Acetaminophen (Tylenol 325mg Tab) 650 mg PO Q4H PRN PRN Reason: Fever >100.5 F Last Admin: 06/10/17 00:05 Dose: 650 mg Acetaminophen (Tylenol 325mg Tab) 650 mg PO Q4 PRN PRN Reason: Pain, moderate (4-7) Alprazolam (Xanax) 0.25 mg PO TID PRN; Protocol PRN Reason: Anxiety Stop: 06/17/17 10:01 Amlodipine Besylate (Norvasc) 10 mg PO DAILY [facility] Last Admin: 06/12/17 09:22 Dose: 10 mg Enoxaparin Sodium (Lovenox) 40 mg SC DAILY [facility] PRN Reason: Protocol Last Admin: 06/12/17 09:22 Dose: 40 mg Glipizide (Glucotrol) 10 mg PO BID [facility] Last Admin: 06/12/17 17:01 Dose: 10 mg Hydralazine HCl (Apresoline) 50 mg PO BID [facility] Last Admin: 06/12/17 17:01 Dose: 50 mg Hydralazine HCl (Apresoline) 25 mg PO Q4 PRN PRN Reason: Other Linezolid (Zyvox 600mg/300ml D5w) 600 mg in 300 mls @ 200 mls/hr IVPB Q12 JACQUELINE PRN Reason: Protocol Stop: 06/17/17 10:31 Last Admin: 06/12/17 21:27 Dose: 200 mls/hr Meropenem 1 gm/ Dextrose 100 mls @ 100 mls/hr IVPB Q12 JACQUELINE Stop: 06/17/17 10:31 Last Admin: 06/12/17 21:26 Dose: 100 mls/hr Sodium Chloride (Sodium Chloride 0.45%) 1,000 mls @ 40 mls/hr IV .Q24H [facility] Last Admin: 06/12/17 07:30 Dose: 40 mls/hr Insulin Human Regular (Humulin R Low) 0 units SC ACHS [facility]ACQUELINE PRN Reason: Protocol Last Admin: 06/12/17 22:00 Dose: Not Given Metformin HCl (Glucophage) 1,000 mg PO BID [facility] Last Admin: 06/11/17 21:16 Dose: Not Given Oxychlorosene Sodium (Clorpactin Wcs-90) 2 gm TOP DAILY [facility] Oxycodone/Acetaminophen (Percocet 5/325 Mg Tab) 1 tab PO Q6H PRN PRN Reason: Pain, severe (8-10) Stop: 06/13/17 16:57 Zolpidem Tartrate (Ambien) 5 mg PO HS PRN; Protocol PRN Reason: Insomnia Last Admin: 06/12/17 23:01 Dose: 5 mg - Labs Labs: 06/13/17 05:20 06/13/17 05:20 PT 14.1 SECONDS (9.4-12.5) H 06/09/17 20:10 INR 1.29 (0.93-1.08) H 06/09/17 20:10 APTT 24.8 Seconds (25.1-36.5) L 06/09/17 20:10 - Constitutional Appears: Well, Non-toxic, No Acute Distress - Head Exam Head Exam: ATRAUMATIC, NORMAL INSPECTION, NORMOCEPHALIC - Eye Exam Eye Exam: EOMI Pupil Exam: NORMAL ACCOMODATION - ENT Exam ENT Exam: Mucous Membranes Moist - Respiratory Exam Respiratory Exam: Clear to Ausculation Bilateral, NORMAL BREATHING PATTERN - Cardiovascular Exam Cardiovascular Exam: REGULAR RHYTHM - GI/Abdominal Exam GI & Abdominal Exam: Soft, Normal Bowel Sounds. absent: Distended, Tenderness - Extremities Exam Extremities Exam: Tenderness (mild tenderness around L. wound. healing well, no necrotic tissue present. Dressing clean dry and intact. ). absent: Joint Swelling Assessment and Plan - Assessment and Plan (Free Text) Assessment: 42M s/p ID L Foot Plan: * Dressing change per podiatry * Antibiotics per ID * Continue medical managment * No further surgical intervention at this time * D/W Dr. Yang Blanca PGY1
[2017-06-13] MEDS: Insulin Reg-LOW-Coverage SC SCH ×4 (08:57→22:00)
--- NOTE | 2017-06-13 08:58 | PN ---
DATE: SUBJECTIVE: I saw Shant resting comfortably in bed, very little pain, the left foot is bandaged, he has osteo now of the toe of the left foot. He is on IV fluid, Ambien, Apresoline, Clorpactin, Glucophage, Glucotrol, insulin, Lovenox, Merrem IV, Norvasc, Percocet, Tylenol, Xanax, and Zyvox. I ordered a PICC line for insertion, so we can have 6 weeks of IV antibiotics for the osteomyelitis. PHYSICAL EXAMINATION: VITAL SIGNS: He has a 98.5 temperature; 100 pulse, down to 84 pulse; 140/71 blood pressure; 20 respiratory rate; 96% O2 sat on room air. HEENT: Head is atraumatic and normocephalic. Alert, oriented, talking, understands the plan. Throat is moist. NECK: Supple. HEART: Regular rate. LUNGS: Decreased breath sounds, but clear. ABDOMEN: Soft, obese, nontender. EXTREMITIES: Have no edema, but the left foot is bandaged, little bit puffy from the procedure they did. LABORATORY DATA: He has a 6.9 white count, 9.6 hemoglobin, 20.8 hematocrit with 252 platelets. He has a 140 sodium, potassium 4.2, BUN 8, creatinine 1.2, GFR is greater than 60, sugar is 189, calcium is 8.5, total bilirubin is 0.5, AST is 35, ALT is 40, alkaline phosphatase is 58, total protein is 6.9. Coagulase-negative staph in the wound. Lower extremity MRI shows soft tissue ulcer on the plantar aspect of the fifth metatarsal head, there was mild amount of marrow edema which could represent early osteomyelitis. Karl Hart DO
[2017-06-13] MEDS: Enoxaparin 40 mg Syringe SC SCH (09:01)
[2017-06-13] MEDS: Linezolid 600 mg in D5W 300 ml 600 MG/300 ML BAG IVPB SCH ×2 (09:02→21:13)
[2017-06-13] MEDS: Oxychlorosene Topical 2 gm Packet TOP SCH (09:17)
--- NOTE | 2017-06-13 10:33 | CP.PCM.PN ---
Subjective - Date & Time of Evaluation Date of Evaluation: 06/13/17 Time of Evaluation: 10:30 - Subjective Subjective: 42 y/o male seen and evaluated at bedside with attending Dr. Chou 3 day s/p I &D of the left foot. Patient is resting comfortably in his bed and is in NAD. Patient denies of any acute overnight events, F/N/V/C/SOB/CP and is AAOx3. Denies of any pain in his left foot. Denies of any pedal complains at this time. Objective - Vital Signs/Intake and Output Vital Signs (last 24 hours): Temp Pulse Resp BP Pulse Ox 97.7 F 90 20 136/76 97 06/13/17 08:05 06/13/17 09:01 06/13/17 08:05 06/13/17 09:01 06/13/17 08:05 Intake and Output: 06/13/17 06/13/17 06:59 18:59 Intake Total 1500 Output Total 1000 Balance 500 - Medications Medications: Current Medications Acetaminophen (Tylenol 325mg Tab) 650 mg PO Q4H PRN PRN Reason: Fever >100.5 F Last Admin: 06/10/17 00:05 Dose: 650 mg Acetaminophen (Tylenol 325mg Tab) 650 mg PO Q4 PRN PRN Reason: Pain, moderate (4-7) Alprazolam (Xanax) 0.25 mg PO TID PRN; Protocol PRN Reason: Anxiety Stop: 06/17/17 10:01 Amlodipine Besylate (Norvasc) 10 mg PO DAILY [facility] Last Admin: 06/13/17 09:00 Dose: 10 mg Enoxaparin Sodium (Lovenox) 40 mg SC DAILY [facility] PRN Reason: Protocol Last Admin: 06/13/17 09:01 Dose: 40 mg Glipizide (Glucotrol) 10 mg PO BID [facility] Last Admin: 06/13/17 09:00 Dose: 10 mg Hydralazine HCl (Apresoline) 25 mg PO Q4 PRN PRN Reason: Other Linezolid (Zyvox 600mg/300ml D5w) 600 mg in 300 mls @ 200 mls/hr IVPB Q12 [facility] PRN Reason: Protocol Stop: 06/17/17 10:31 Last Admin: 06/13/17 09:02 Dose: 200 mls/hr Meropenem 1 gm/ Dextrose 100 mls @ 100 mls/hr IVPB Q12 [facility] Stop: 06/17/17 10:31 Last Admin: 06/13/17 09:02 Dose: 100 mls/hr Insulin Human Regular (Humulin R Low) 0 units SC ACHS [facility] PRN Reason: Protocol Last Admin: 06/13/17 08:57 Dose: 1 units Losartan Potassium (Cozaar) 50 mg PO DAILY [facility] Metformin HCl (Glucophage) 1,000 mg PO BID [facility] Last Admin: 06/11/17 21:16 Dose: Not Given Oxychlorosene Sodium (Clorpactin Wcs-90) 2 gm TOP DAILY [facility] Last Admin: 06/13/17 09:17 Dose: 2 gm Oxycodone/Acetaminophen (Percocet 5/325 Mg Tab) 1 tab PO Q6H PRN PRN Reason: Pain, severe (8-10) Stop: 06/13/17 16:57 Zolpidem Tartrate (Ambien) 5 mg PO HS PRN; Protocol PRN Reason: Insomnia Last Admin: 06/12/17 23:01 Dose: 5 mg - Labs Labs: 06/13/17 05:20 06/13/17 05:20 PT 14.1 SECONDS (9.4-12.5) H 06/09/17 20:10 INR 1.29 (0.93-1.08) H 06/09/17 20:10 APTT 24.8 Seconds (25.1-36.5) L 06/09/17 20:10 - Constitutional Appears: Well, Non-toxic, No Acute Distress - Extremities Exam Extremities Exam: absent: Calf Tenderness Additional comments: Bilateral LE focused exam: VASC: DP/PT pulses are palpable 2/4, Cap refill time: < 3 sec to all digits, Temp gradient: warm to cool on the right and warm to warm on the left from proximal to distal, non-pitting edema noted on the dorsum and lateral aspect of the left foot extending to the ankle joint DERM: Erythema extending from the dorsum, and lateral aspect of the left foot to the ankle appears to be resolving and is confined to the dorsolateral and plantar lateral aspect of the left foot, Surgical wound present at the level of plantar 5th metatarsal head which measures approx. 2.0 cmx 2.0 cm x 0.5 cm, wound base is fibro-granular with necrotic tissue at the edges and macerated wound border - probe to bone present with no active drainage at this time, similar surgical wound present on the dorsolataral aspect of the 5th metatarsal head, small surgical stab incision noted in the 4th interspace, no malodor, no fluctuance noted on palpation of the dorsolateral, plantarlateral and 4th interspace of the left foot NEURO: Protective sensation grossly diminished ORTHO: mild pain on palpation of the wound site - Neurological Exam Neurological Exam: Alert, Awake, Oriented x3 - Psychiatric Exam Psychiatric exam: Normal Affect, Normal Mood Assessment and Plan - Assessment and Plan (Free Text) Assessment: 42 y/o male evaluated at bedside 3 days s/p I&D of of the left foot for abscess with soft tissue emphysema Plan: Patient seen and evaluated at bedside with attending Dr. Chou Labs, vitals and, charts reviewed - febrile with WBC @ 6.9 (trending down) Wounds flushed with cloropactin and new dressing applied using iodoform packing , DSD, MATEUS Left foot x-ray prior to the I&D procedure - diffuse radiolucensy on the lateral aspect of the left foot as well as the 4th interspace indicating gas MRI of the left foot: - Mild amount of marrow edema in 5th proximal phalanx and minimal edema in the metatarsal head - indicative of early OM PICC line placement for IV abx IV abx as per ID Multipodus boots ordered - keep them on while in bed Wedge shoe - educated to wear this shoe while weightbearing Patient is stable from podiatry stand point - educated to follow up with Dr. Chou in wound care center upon discharge Podiatry to follow patient while in-house
--- NOTE | 2017-06-13 12:27 | CP.PCM.PN ---
Subjective - Date & Time of Evaluation Date of Evaluation: 06/13/17 Time of Evaluation: 10:50 - Subjective Subjective: Comfortable on a chair, much improved pain and swelling on the left foot, no fevers overnight, no diarrhea. Objective - Vital Signs/Intake and Output Vital Signs (last 24 hours): Temp Pulse Resp BP Pulse Ox 97.7 F 90 20 136/76 97 06/13/17 08:05 06/13/17 09:01 06/13/17 08:05 06/13/17 09:01 06/13/17 08:05 Intake and Output: 06/13/17 06/13/17 06:59 18:59 Intake Total 1500 Output Total 1000 Balance 500 - Medications Medications: Current Medications Acetaminophen (Tylenol 325mg Tab) 650 mg PO Q4H PRN PRN Reason: Fever >100.5 F Last Admin: 06/10/17 00:05 Dose: 650 mg Acetaminophen (Tylenol 325mg Tab) 650 mg PO Q4 PRN PRN Reason: Pain, moderate (4-7) Alprazolam (Xanax) 0.25 mg PO TID PRN; Protocol PRN Reason: Anxiety Stop: 06/17/17 10:01 Amlodipine Besylate (Norvasc) 10 mg PO DAILY [facility] Last Admin: 06/13/17 09:00 Dose: 10 mg Enoxaparin Sodium (Lovenox) 40 mg SC DAILY [facility] PRN Reason: Protocol Last Admin: 06/13/17 09:01 Dose: 40 mg Glipizide (Glucotrol) 10 mg PO BID [facility] Last Admin: 06/13/17 09:00 Dose: 10 mg Hydralazine HCl (Apresoline) 50 mg PO BID [facility] Last Admin: 06/13/17 09:01 Dose: 50 mg Hydralazine HCl (Apresoline) 25 mg PO Q4 PRN PRN Reason: Other Linezolid (Zyvox 600mg/300ml D5w) 600 mg in 300 mls @ 200 mls/hr IVPB Q12 [facility] PRN Reason: Protocol Stop: 06/17/17 10:31 Last Admin: 06/13/17 09:02 Dose: 200 mls/hr Meropenem 1 gm/ Dextrose 100 mls @ 100 mls/hr IVPB Q12 [facility] Stop: 06/17/17 10:31 Last Admin: 06/13/17 09:02 Dose: 100 mls/hr Sodium Chloride (Sodium Chloride 0.45%) 1,000 mls @ 40 mls/hr IV .Q24H [facility] Last Admin: 06/12/17 07:30 Dose: 40 mls/hr Insulin Human Regular (Humulin R Low) 0 units SC ACHS [facility] PRN Reason: Protocol Last Admin: 06/13/17 08:57 Dose: 1 units Metformin HCl (Glucophage) 1,000 mg PO BID [facility] Last Admin: 06/11/17 21:16 Dose: Not Given Oxychlorosene Sodium (Clorpactin Wcs-90) 2 gm TOP DAILY [facility] Last Admin: 06/13/17 09:17 Dose: 2 gm Oxycodone/Acetaminophen (Percocet 5/325 Mg Tab) 1 tab PO Q6H PRN PRN Reason: Pain, severe (8-10) Stop: 06/13/17 16:57 Zolpidem Tartrate (Ambien) 5 mg PO HS PRN; Protocol PRN Reason: Insomnia Last Admin: 06/12/17 23:01 Dose: 5 mg - Labs Labs: 06/13/17 05:20 06/13/17 05:20 PT 14.1 SECONDS (9.4-12.5) H 06/09/17 20:10 INR 1.29 (0.93-1.08) H 06/09/17 20:10 APTT 24.8 Seconds (25.1-36.5) L 06/09/17 20:10 - Constitutional Appears: Non-toxic - Head Exam Head Exam: NORMAL INSPECTION - ENT Exam ENT Exam: Mucous Membranes Moist - Neck Exam Neck Exam: absent: Lymphadenopathy, Meningismus - Respiratory Exam Respiratory Exam: Decreased Breath Sounds - Cardiovascular Exam Cardiovascular Exam: +S1, +S2 - GI/Abdominal Exam GI & Abdominal Exam: Soft. absent: Tenderness - Extremities Exam Additional comments: left foot with dressings in place Assessment and Plan - Assessment and Plan (Free Text) Plan: Assessment Severe sepsis with acute renal failure (resolved) due to left diabetic foot infection with abscess and probable gangrene and necrotizing infection with early osteomyelitis of the 5th proximal phalanx as seen on MRI, S/P I and D and debridement POD #3 DM HTN obesity with BMI 37 Plan continue Zyvox and Merrem pending final blood and wound cx results, as well as OR pathology - will need 4-6 weeks of antibiotics will continue to monitor clinically discussed with Dr. Hart previously
--- NOTE | 2017-06-13 14:30 | CP.PCM.PN ---
Subjective - Date & Time of Evaluation Date of Evaluation: 06/13/17 Time of Evaluation: 14:26 - Subjective Subjective: Follow up Nephrology Consultation: Assessment: Stable Acute Kidney Injury (N17.9) possibly due to sepsis due to left wound infection with acute osteomyelitis (s/p I and D): improved HAGMA, ketoacidosis DM, HTN, Obesity uncontrolled severe HTN now better Plan No acute need for renal replacement therapy at this time. Hypertension control with meds as ordered. Resume losartan hence d/c hydralazine. Monitor Input/Output, daily weights and renal function with basic metabolic panel anemia management as per primary team Dose meds/antibiotics for GFR >60. Avoid fleets enema/magnesium based laxatives. Avoid nephrotoxins/NSAIDs/ iodinated contrast (unless needed emergently) Glycemic control Further work up/management as per primary team pt stable for d/c from renal perspective, when planned Thanks for allowing me to participate in care of your patient. Will follow patient with you. Please call if any Qs. Dr Titus Neil Office: [phone] Chief Complaint;no new complaints Reason for consult: IMANI HPI: Pt is a 42 y/o M with hx of diabetes Mellitus ( 7 years), hypertension (7 years), obesity BMI 37 presented with complaints of left foot wound infection, worsening, for last 1 week. has associated sepsis and renal consulted for IMANI> pt not aware about kidney problems in past. ROS: feels much better. Denies chest pain, palpitation, shortness of breath, leg swelling Denies blood or bubbles in urine. feels making lot more urine Physical Examination: General Appearance: Comfortable, in no acute respiratory distress, co-operative . obese Vitals reviewed and noted as below Head; Atraumatic, normocephalic ENT: no ulcers no thrush. Tongue is midline. Oropharynx: no rash or ulcers. EYES: Pupils are equal, round and reactive to light accommodation. Eye muscles and extraocular movement intact. Sclera is anicteric. Neck; supple no lymphadenopathy, no thyromegaly or bruit Lungs: Normal respiratory rate/effort. Breath sounds bilateral equal and clear Heart:normal rate. s1s2 normal. No rub or gallop. Extremities: no edema. No varicose veins. LEft foot dressed, Neurological: Patient is alert, awake and oriented to person, place and time. No focal deficit. Strength bilateral appropriate and equal Skin: Warm and dry. Normal turgor. No rash. Palpitation: Normal elasticity for age Abdomen: Abdomen is soft. Bowel sounds +. There is no abdominal tenderness, no guarding/rigidity no organomegaly Psych: normal insight and normal affect/mood MSK: no joint tenderness or swelling. Digits and nails normal, no deformity : kidney or bladder not palpable Labs/imaging/EKG reviewed. Past medical history, past surgical history, family history, social history, allergy reviewed and noted as below Family hx: no hx of CKD. Rest non-contributory Objective - Vital Signs/Intake and Output Vital Signs (last 24 hours): Temp Pulse Resp BP Pulse Ox 97.7 F 90 20 136/76 97 06/13/17 08:05 06/13/17 11:06 06/13/17 08:05 06/13/17 11:06 06/13/17 08:05 Intake and Output: 06/13/17 06/13/17 06:59 18:59 Intake Total 1500 Output Total 1000 Balance 500 - Medications Medications: Current Medications Acetaminophen (Tylenol 325mg Tab) 650 mg PO Q4H PRN PRN Reason: Fever >100.5 F Last Admin: 06/10/17 00:05 Dose: 650 mg Acetaminophen (Tylenol 325mg Tab) 650 mg PO Q4 PRN PRN Reason: Pain, moderate (4-7) Alprazolam (Xanax) 0.25 mg PO TID PRN; Protocol PRN Reason: Anxiety Stop: 06/17/17 10:01 Amlodipine Besylate (Norvasc) 10 mg PO DAILY [facility] Last Admin: 06/13/17 09:00 Dose: 10 mg Enoxaparin Sodium (Lovenox) 40 mg SC DAILY [facility] PRN Reason: Protocol Last Admin: 06/13/17 09:01 Dose: 40 mg Glipizide (Glucotrol) 10 mg PO BID [facility] Last Admin: 06/13/17 09:00 Dose: 10 mg Hydralazine HCl (Apresoline) 25 mg PO Q4 PRN PRN Reason: Other Linezolid (Zyvox 600mg/300ml D5w) 600 mg in 300 mls @ 200 mls/hr IVPB Q12 [facility] PRN Reason: Protocol Stop: 06/17/17 10:31 Last Admin: 06/13/17 09:02 Dose: 200 mls/hr Meropenem 1 gm/ Dextrose 100 mls @ 100 mls/hr IVPB Q12 [facility] Stop: 06/17/17 10:31 Last Admin: 06/13/17 09:02 Dose: 100 mls/hr Insulin Human Regular (Humulin R Low) 0 units SC ACHS [facility] PRN Reason: Protocol Last Admin: 06/13/17 12:43 Dose: 3 units Losartan Potassium (Cozaar) 50 mg PO DAILY [facility] Last Admin: 06/13/17 11:06 Dose: 50 mg Metformin HCl (Glucophage) 1,000 mg PO BID [facility] Last Admin: 06/11/17 21:16 Dose: Not Given Oxychlorosene Sodium (Clorpactin Wcs-90) 2 gm TOP DAILY [facility] Last Admin: 06/13/17 09:17 Dose: 2 gm Oxycodone/Acetaminophen (Percocet 5/325 Mg Tab) 1 tab PO Q6H PRN PRN Reason: Pain, severe (8-10) Stop: 06/13/17 16:57 Zolpidem Tartrate (Ambien) 5 mg PO HS PRN; Protocol PRN Reason: Insomnia Last Admin: 06/12/17 23:01 Dose: 5 mg - Labs Labs: 06/13/17 05:20 06/13/17 05:20 PT 14.1 SECONDS (9.4-12.5) H 06/09/17 20:10 INR 1.29 (0.93-1.08) H 06/09/17 20:10 APTT 24.8 Seconds (25.1-36.5) L 06/09/17 20:10
[2017-06-14 01:31] VITALS: TEMP 97.8
[2017-06-14 06:58] LABS: HEMATOCRIT 29.1 % (42.0-52.0); MEAN CELL VOLUME 92.1 fl (80.0-105.0); MEAN CORPUSCULAR HEMOGLOBIN 30.1 pg (25.0-35.0); MEAN CORPUSCULAR HGB CONC 32.6 g/dl (31.0-37.0); MEAN PLATELET VOLUME 9.9 fl (7.0-11.0); RED CELL DISTRIBUTION WIDTH 12.2 % (11.5-14.5); WHITE BLOOD COUNT 6.5 10^3/ul (4.5-11.0)
[2017-06-14 08:30] LABS: ALB/GLOB RATIO 0.9 (1.1-1.8); ALKALINE PHOSPHATASE 53 U/L (38-126); ALT/SGPT 56 U/L (7-56); AST/SGOT 40 U/L (17-59); BILIRUBIN,TOTAL 0.5 mg/dL (0.2-1.3); BLOOD UREA NITROGEN 7 mg/dL (7-21); CALCIUM 8.8 mg/dL (8.4-10.5); CARBON DIOXIDE 28 mmol/L (21-33); CHLORIDE 106 mmol/L (98-107); GFR AFRICAN-AMERICAN > 60; GLUCOSE,RANDOM 143 mg/dL (70-110); POTASSIUM 3.9 mmol/L (3.6-5.0); SODIUM 141 mmol/L (132-148); TOTAL PROTEIN 6.9 g/dL (5.8-8.3)
--- NOTE | 2017-06-14 08:37 | CP.PCM.PN ---
Subjective - Date & Time of Evaluation Date of Evaluation: 06/14/17 Time of Evaluation: 08:34 - Subjective Subjective: PGY1 Note for Dr. Soria Patient seen and examined at bedside Doing well with no complaints at this time No fever or chills Able to ambulate without difficulty Objective - Vital Signs/Intake and Output Vital Signs (last 24 hours): Temp Pulse Resp BP Pulse Ox 97.8 F 90 20 160/80 H 96 06/14/17 00:06 06/14/17 00:06 06/14/17 00:06 06/14/17 00:06 06/14/17 00:06 Intake and Output: 06/14/17 06/14/17 06:59 18:59 Intake Total 990 Output Total 100 Balance 890 - Medications Medications: Current Medications Acetaminophen (Tylenol 325mg Tab) 650 mg PO Q4H PRN PRN Reason: Fever >100.5 F Last Admin: 06/10/17 00:05 Dose: 650 mg Acetaminophen (Tylenol 325mg Tab) 650 mg PO Q4 PRN PRN Reason: Pain, moderate (4-7) Alprazolam (Xanax) 0.25 mg PO TID PRN; Protocol PRN Reason: Anxiety Stop: 06/17/17 10:01 Amlodipine Besylate (Norvasc) 10 mg PO DAILY [facility] Last Admin: 06/13/17 09:00 Dose: 10 mg Enoxaparin Sodium (Lovenox) 40 mg SC DAILY [facility] PRN Reason: Protocol Last Admin: 06/13/17 09:01 Dose: 40 mg Glipizide (Glucotrol) 10 mg PO BID [facility] Last Admin: 06/13/17 17:51 Dose: 10 mg Hydralazine HCl (Apresoline) 25 mg PO Q4 PRN PRN Reason: Other Linezolid (Zyvox 600mg/300ml D5w) 600 mg in 300 mls @ 200 mls/hr IVPB Q12 [facility] PRN Reason: Protocol Stop: 06/17/17 10:31 Last Admin: 06/13/17 21:13 Dose: 200 mls/hr Meropenem 1 gm/ Dextrose 100 mls @ 100 mls/hr IVPB Q12 [facility] Stop: 06/17/17 10:31 Last Admin: 06/13/17 21:12 Dose: 100 mls/hr Insulin Human Regular (Humulin R Low) 0 units SC ACHS [facility] PRN Reason: Protocol Last Admin: 06/13/17 22:00 Dose: Not Given Losartan Potassium (Cozaar) 50 mg PO DAILY [facility] Last Admin: 06/13/17 11:06 Dose: 50 mg Metformin HCl (Glucophage) 1,000 mg PO BID [facility] Last Admin: 06/11/17 21:16 Dose: Not Given Oxychlorosene Sodium (Clorpactin Wcs-90) 2 gm TOP DAILY [facility] Last Admin: 06/13/17 09:17 Dose: 2 gm Zolpidem Tartrate (Ambien) 5 mg PO HS PRN; Protocol PRN Reason: Insomnia Last Admin: 06/12/17 23:01 Dose: 5 mg - Labs Labs: 06/14/17 06:00 06/14/17 06:00 PT 14.1 SECONDS (9.4-12.5) H 06/09/17 20:10 INR 1.29 (0.93-1.08) H 06/09/17 20:10 APTT 24.8 Seconds (25.1-36.5) L 06/09/17 20:10 - Constitutional Appears: Well, Non-toxic, No Acute Distress - Head Exam Head Exam: ATRAUMATIC, NORMAL INSPECTION, NORMOCEPHALIC - Eye Exam Eye Exam: EOMI Pupil Exam: NORMAL ACCOMODATION - ENT Exam ENT Exam: Mucous Membranes Moist - Respiratory Exam Respiratory Exam: Clear to Ausculation Bilateral, NORMAL BREATHING PATTERN - Cardiovascular Exam Cardiovascular Exam: REGULAR RHYTHM - GI/Abdominal Exam GI & Abdominal Exam: Soft, Normal Bowel Sounds. absent: Distended, Tenderness - Extremities Exam Extremities Exam: Tenderness. absent: Joint Swelling Additional comments: minimal tenderness around I/D site, draining blood and serous fluid, dressing dry and intact. - Neurological Exam Neurological Exam: Alert, Awake, Oriented x3 - Psychiatric Exam Psychiatric exam: Normal Affect, Normal Mood - Skin Skin Exam: Dry, Intact, Normal Color, Warm Assessment and Plan - Assessment and Plan (Free Text) Assessment: 42M s/p ID L. Foot Plan: * Wound care per podiatry * PICC for longterm Abx for suspected osteo * Continue medical management * No further surgical intervention needed at this time
[2017-06-14] MEDS: Insulin Reg-LOW-Coverage SC SCH ×2 (09:00→12:08)
--- NOTE | 2017-06-14 09:10 | PN ---
DATE: SUBJECTIVE: I saw him resting comfortably in bed. He is on IV antibiotics. The left foot is bandaged. He is doing better, less swollen. He has been out of bed to chair. He is in good spirits, less pain. He is looking forward to going home for outpatient IV antibiotics. Awaiting for the cultures to come back for Infectious Disease to let us know which antibiotics and he will need to be on them for 4-6 weeks. He is on Ambien, Apresoline, Clorpactin, Cozaar, Glucophage, Glucotrol, insulin, Lovenox, Merrem IV, Norvasc, Tylenol, Xanax, and Zyvox IV. PHYSICAL EXAMINATION: VITAL SIGNS: He has 97.8 temperature, 90 pulse, 136/76 blood pressure, 20 respiratory rate, 96% O2 sat on room air. HEENT: Head is atraumatic and normocephalic. Throat is moist. NECK: Supple. HEART: Regular rate. LUNGS: Clear to auscultation. ABDOMEN: Soft, nontender, positive bowel sounds, obese. EXTREMITIES: Have no edema. Left foot is a little bit puffy, but better than the other day. He had surgery there. LABORATORY DATA: He has 127 blood sugar this morning, but chemistry is pending this morning. Yesterday, his chemistry was very good. He has 6.5 white count, 9.5 hemoglobin, and 29.1 hematocrit with 274 platelets. PLAN: He is being seen by Renal, Infectious Disease, Surgery, and Podiatry. He has a PICC line already placed. Awaiting for Infectious Disease to let us know which antibiotic how many times a day. He is doing very well and he has diabetic foot ulcer and osteomyelitis. He had gas gangrene. Also we discussed changing his diet and losing some weight. We will discharge when I get the okay from Infectious Disease. Karl Hart DO
[2017-06-14 09:45] VITALS: BP 148/82; PULSE 89; O2SAT 97
[2017-06-14] MEDS: Linezolid 600 mg in D5W 300 ml 600 MG/300 ML BAG IVPB SCH (10:17)
[2017-06-14] MEDS: Enoxaparin 40 mg Syringe SC SCH (10:18)
[2017-06-14] MEDS: Oxychlorosene Topical 2 gm Packet TOP SCH (10:34)
[2017-06-14] MEDS ORDERED: Ertapenem 1gm in NS 50ml 1 GM/50 ML BAG IVPB STA (13:37)
--- NOTE | 2017-06-14 13:45 | CP.PCM.PN ---
<Mallory Gustafson - Last Filed: 06/14/17 17:22> Subjective - Date & Time of Evaluation Date of Evaluation: 06/14/17 Time of Evaluation: 13:45 - Subjective Subjective: Podiatry Progress Note 42 year old male patient seen and evaluated at bedside POD#4 left foot I&D. Patient seen OOB in chair with multipodus boot on LLE. Patient hemodynamically stable, NAD. Denies any acute events overnight. Denies any pain in left foot. Denies N/V/F/D/C/SOB/calf pain. Offers no pedal complaints this visit. Objective - Vital Signs/Intake and Output Vital Signs (last 24 hours): Temp Pulse Resp BP Pulse Ox 97.8 F 89 20 148/82 97 06/14/17 06:00 06/14/17 06:00 06/14/17 06:00 06/14/17 10:17 06/14/17 06:00 Intake and Output: 06/14/17 06/14/17 06:59 18:59 Intake Total 990 Output Total 100 Balance 890 - Medications Medications: Current Medications Acetaminophen (Tylenol 325mg Tab) 650 mg PO Q4H PRN PRN Reason: Fever >100.5 F Last Admin: 06/10/17 00:05 Dose: 650 mg Acetaminophen (Tylenol 325mg Tab) 650 mg PO Q4 PRN PRN Reason: Pain, moderate (4-7) Alprazolam (Xanax) 0.25 mg PO TID PRN; Protocol PRN Reason: Anxiety Stop: 06/17/17 10:01 Amlodipine Besylate (Norvasc) 10 mg PO DAILY [facility] Last Admin: 06/14/17 10:17 Dose: 10 mg Enoxaparin Sodium (Lovenox) 40 mg SC DAILY [facility] PRN Reason: Protocol Last Admin: 06/14/17 10:18 Dose: 40 mg Glipizide (Glucotrol) 10 mg PO BID [facility] Last Admin: 06/14/17 10:17 Dose: 10 mg Hydralazine HCl (Apresoline) 25 mg PO Q4 PRN PRN Reason: Other Linezolid (Zyvox 600mg/300ml D5w) 600 mg in 300 mls @ 200 mls/hr IVPB Q12 [facility] PRN Reason: Protocol Stop: 06/17/17 10:31 Last Admin: 06/14/17 10:17 Dose: 200 mls/hr Meropenem 1 gm/ Dextrose 100 mls @ 100 mls/hr IVPB Q12 [facility] Stop: 06/17/17 10:31 Last Admin: 06/14/17 12:08 Dose: 100 mls/hr Ertapenem (Invanz) 1 gm in 50 mls @ 100 mls/hr IVPB STAT STA Stop: 06/14/17 14:06 Insulin Human Regular (Humulin R Low) 0 units SC ACHS [facility] PRN Reason: Protocol Last Admin: 06/14/17 12:08 Dose: 3 units Losartan Potassium (Cozaar) 50 mg PO DAILY [facility] Last Admin: 06/14/17 10:18 Dose: 50 mg Metformin HCl (Glucophage) 1,000 mg PO BID [facility] Last Admin: 06/11/17 21:16 Dose: Not Given Oxychlorosene Sodium (Clorpactin Wcs-90) 2 gm TOP DAILY [facility] Last Admin: 06/14/17 10:34 Dose: Not Given Zolpidem Tartrate (Ambien) 5 mg PO HS PRN; Protocol PRN Reason: Insomnia Last Admin: 06/12/17 23:01 Dose: 5 mg - Labs Labs: 06/14/17 06:00 06/14/17 06:00 PT 14.1 SECONDS (9.4-12.5) H 06/09/17 20:10 INR 1.29 (0.93-1.08) H 06/09/17 20:10 APTT 24.8 Seconds (25.1-36.5) L 06/09/17 20:10 - Constitutional Appears: Well, Non-toxic, No Acute Distress - Extremities Exam Additional comments: Left foot dressing appears clean/dry/intact VASC: DP/PT pulses are palpable 2/4, Cap refill time: < 3 sec to all digits, Temp gradient: warm to cool on the right and warm to warm on the left from proximal to distal, non-pitting edema noted on the dorsum and lateral aspect of the left foot extending to the ankle joint DERM: Erythema extending from the lateral aspect of left foot to the ankle, resolving. Surgical wound present at the level of plantar 5th metatarsal head which measures approx. 2.0 cm x 2.0 cm x 0.5 cm, wound base is fibro-granular with necrotic tissue at the edges and macerated wound border - probe to bone present with no active drainage at this time. Second surgical wound present on the dorsolataral aspect of the 5th metatarsal head. Surgical stab incision noted in the 4th interspace. Absent malodor, no fluctuance noted on palpation of the dorsolateral, plantarlateral and 4th interspace of the left foot. NEURO: Protective sensation grossly diminished ORTHO: No pain on palpation of the wound site - Neurological Exam Neurological Exam: Alert, Awake, Oriented x3 - Psychiatric Exam Psychiatric exam: Normal Affect, Normal Mood Assessment and Plan - Assessment and Plan (Free Text) Assessment: 42 y/o male evaluated at bedside 4 days s/p I&D of of the left foot for abscess with soft tissue emphysema Plan: Patient seen and evaluated at bedside with attending Dr. Garcia Afebrile currently, WBC 6.5 (trending downwards) Left foot x-ray prior to the I&D procedure - diffuse radiolucensy on the lateral aspect of the left foot as well as the 4th interspace indicating gas MRI of the left foot: - Mild amount of marrow edema in 5th proximal phalanx and minimal edema in the metatarsal head - indicative of early OM PICC line placement for IV abx IV abx as per ID Continue multipodus boots Continue wedge shoe when ambulating Continue local wound care - Wounds flushed with Clorpactin; Iodosoform packing placed in sugical incisions; left foot dressed with DSD, MATEUS Patient is stable from podiatry stand point - educated to follow up with Dr. Chou within 1 week in wound care center upon discharge Podiatry to continue to follow patient while in-house <Diego Garcia - Last Filed: 06/15/17 07:42> Objective - Vital Signs/Intake and Output Vital Signs (last 24 hours): Temp Pulse Resp BP Pulse Ox 97.8 F 89 20 148/82 97 06/14/17 06:00 06/14/17 06:00 06/14/17 06:00 06/14/17 10:17 06/14/17 06:00 - Labs Labs: 06/14/17 06:00 06/14/17 06:00 PT 14.1 SECONDS (9.4-12.5) H 06/09/17 20:10 INR 1.29 (0.93-1.08) H 06/09/17 20:10 APTT 24.8 Seconds (25.1-36.5) L 06/09/17 20:10 Attending/Attestation - Attestation I have personally seen and examined this patient.: Yes I have fully participated in the care of the patient.: Yes I have reviewed all pertinent clinical information, including history, physical exam and plan: Yes
--- NOTE | 2017-06-14 16:21 | CP.PCM.PN ---
Subjective - Date & Time of Evaluation Date of Evaluation: 06/14/17 Time of Evaluation: 16:20 - Subjective Subjective: Follow up Nephrology Consultation: Assessment: Stable Acute Kidney Injury (N17.9) possibly due to sepsis due to left wound infection with acute osteomyelitis (s/p I and D): improved HAGMA, ketoacidosis DM, HTN, Obesity uncontrolled severe HTN now better Plan Hypertension control with meds as ordered. Resume losartan hence d/c hydralazine. Monitor Input/Output, daily weights and renal function with basic metabolic panel anemia management as per primary team Dose meds/antibiotics for GFR >60. Avoid fleets enema/magnesium based laxatives. Avoid nephrotoxins/NSAIDs/ iodinated contrast (unless needed emergently) Glycemic control Further work up/management as per primary team pt stable for d/c from renal perspective, when planned Thanks for allowing me to participate in care of your patient. patient was advised to see me in 1-2 weeks in office. Please call if any Qs. Dr Titus Neil Office: [phone] Chief Complaint;no new complaints Reason for consult: IMANI HPI: Pt is a 42 y/o M with hx of diabetes Mellitus ( 7 years), hypertension (7 years), obesity BMI 37 presented with complaints of left foot wound infection, worsening, for last 1 week. has associated sepsis and renal consulted for IMANI> pt not aware about kidney problems in past. ROS: feels much better. Denies chest pain, palpitation, shortness of breath, leg swelling Denies blood or bubbles in urine. feels making lot more urine going home today Physical Examination: General Appearance: Comfortable, in no acute respiratory distress, co-operative . obese Vitals reviewed and noted as below Head; Atraumatic, normocephalic ENT: no ulcers no thrush. Tongue is midline. Oropharynx: no rash or ulcers. EYES: Pupils are equal, round and reactive to light accommodation. Eye muscles and extraocular movement intact. Sclera is anicteric. Neck; supple no lymphadenopathy, no thyromegaly or bruit Lungs: Normal respiratory rate/effort. Breath sounds bilateral equal and clear Heart:normal rate. s1s2 normal. No rub or gallop. Extremities: no edema. No varicose veins. LEft foot dressed, Neurological: Patient is alert, awake and oriented to person, place and time. No focal deficit. Strength bilateral appropriate and equal Skin: Warm and dry. Normal turgor. No rash. Palpitation: Normal elasticity for age Abdomen: Abdomen is soft. Bowel sounds +. There is no abdominal tenderness, no guarding/rigidity no organomegaly Psych: normal insight and normal affect/mood MSK: no joint tenderness or swelling. Digits and nails normal, no deformity : kidney or bladder not palpable Labs/imaging/EKG reviewed. Past medical history, past surgical history, family history, social history, allergy reviewed and noted as below Family hx: no hx of CKD. Rest non-contributory Objective - Vital Signs/Intake and Output Vital Signs (last 24 hours): Temp Pulse Resp BP Pulse Ox 97.8 F 89 20 148/82 97 06/14/17 06:00 06/14/17 06:00 06/14/17 06:00 06/14/17 10:17 06/14/17 06:00 Intake and Output: 06/14/17 06/14/17 06:59 18:59 Intake Total 990 1300 Output Total 100 Balance 890 1300 - Medications Medications: Current Medications Acetaminophen (Tylenol 325mg Tab) 650 mg PO Q4H PRN PRN Reason: Fever >100.5 F Last Admin: 06/10/17 00:05 Dose: 650 mg Acetaminophen (Tylenol 325mg Tab) 650 mg PO Q4 PRN PRN Reason: Pain, moderate (4-7) Alprazolam (Xanax) 0.25 mg PO TID PRN; Protocol PRN Reason: Anxiety Stop: 06/17/17 10:01 Amlodipine Besylate (Norvasc) 10 mg PO DAILY [facility] Last Admin: 06/14/17 10:17 Dose: 10 mg Enoxaparin Sodium (Lovenox) 40 mg SC DAILY [facility] PRN Reason: Protocol Last Admin: 06/14/17 10:18 Dose: 40 mg Glipizide (Glucotrol) 10 mg PO BID [facility] Last Admin: 06/14/17 10: Dose: 10 mg Hydralazine HCl (Apresoline) 25 mg PO Q4 PRN PRN Reason: Other Linezolid (Zyvox 600mg/300ml D5w) 600 mg in 300 mls @ 200 mls/hr IVPB Q12 [facility] PRN Reason: Protocol Stop: 12/04/17 10:31 Last Admin: 06/14/17 10:17 Dose: 200 mls/hr Meropenem 1 gm/ Dextrose 100 mls @ 100 mls/hr IVPB Q12 [facility] Stop: 06/17/17 10:31 Last Admin: 06/14/17 12:08 Dose: 100 mls/hr Ertapenem 1 gm/ Sodium (Chloride) 50 mls @ 100 mls/hr IVPB Q24H [facility] Last Admin: 06/14/17 15:01 Dose: 100 mls/hr Insulin Human Regular (Humulin R Low) 0 units SC ACHS [facility] PRN Reason: Protocol Last Admin: 06/14/17 12:08 Dose: 3 units Losartan Potassium (Cozaar) 50 mg PO DAILY [facility] Last Admin: 06/14/17 10:18 Dose: 50 mg Metformin HCl (Glucophage) 1,000 mg PO BID [facility] Last Admin: 06/11/17 21:16 Dose: Not Given Oxychlorosene Sodium (Clorpactin Wcs-90) 2 gm TOP DAILY [facility] Last Admin: 06/14/17 10:34 Dose: Not Given Zolpidem Tartrate (Ambien) 5 mg PO HS PRN; Protocol PRN Reason: Insomnia Last Admin: 06/12/17 23:01 Dose: 5 mg - Labs Labs: 06/14/17 06:00 06/14/17 06:00 PT 14.1 SECONDS (9.4-12.5) H 06/09/17 20:10 INR 1.29 (0.93-1.08) H 06/09/17 20:10 APTT 24.8 Seconds (25.1-36.5) L 06/09/17 20:10
--- NOTE | 2017-06-14 19:19 | CP.PCM.PN ---
Subjective - Date & Time of Evaluation Date of Evaluation: 06/14/17 Time of Evaluation: 10:40 - Subjective Subjective: Comfortable, no fevers, not in distress, afebrile, less pain in the left foot. Objective - Vital Signs/Intake and Output Vital Signs (last 24 hours): Temp Pulse Resp BP Pulse Ox 97.8 F 90 20 160/80 H 96 06/14/17 00:06 06/14/17 00:06 06/14/17 00:06 06/14/17 00:06 06/14/17 00:06 Intake and Output: 06/14/17 06/14/17 06:59 18:59 Intake Total 990 Output Total 100 Balance 890 - Medications Medications: Current Medications Acetaminophen (Tylenol 325mg Tab) 650 mg PO Q4H PRN PRN Reason: Fever >100.5 F Last Admin: 06/10/17 00:05 Dose: 650 mg Acetaminophen (Tylenol 325mg Tab) 650 mg PO Q4 PRN PRN Reason: Pain, moderate (4-7) Alprazolam (Xanax) 0.25 mg PO TID PRN; Protocol PRN Reason: Anxiety Stop: 06/17/17 10:01 Amlodipine Besylate (Norvasc) 10 mg PO DAILY [facility] Last Admin: 06/13/17 09:00 Dose: 10 mg Enoxaparin Sodium (Lovenox) 40 mg SC DAILY [facility] PRN Reason: Protocol Last Admin: 06/13/17 09:01 Dose: 40 mg Glipizide (Glucotrol) 10 mg PO BID [facility] Last Admin: 06/13/17 17:51 Dose: 10 mg Hydralazine HCl (Apresoline) 25 mg PO Q4 PRN PRN Reason: Other Linezolid (Zyvox 600mg/300ml D5w) 600 mg in 300 mls @ 200 mls/hr IVPB Q12 [facility] PRN Reason: Protocol Stop: 06/17/17 10:31 Last Admin: 06/13/17 21:13 Dose: 200 mls/hr Meropenem 1 gm/ Dextrose 100 mls @ 100 mls/hr IVPB Q12 [facility] Stop: 06/17/17 10:31 Last Admin: 06/13/17 21:12 Dose: 100 mls/hr Insulin Human Regular (Humulin R Low) 0 units SC ACHS [facility] PRN Reason: Protocol Last Admin: 06/14/17 09:00 Dose: Not Given Losartan Potassium (Cozaar) 50 mg PO DAILY [facility] Last Admin: 06/13/17 11:06 Dose: 50 mg Metformin HCl (Glucophage) 1,000 mg PO BID [facility] Last Admin: 06/11/17 21:16 Dose: Not Given Oxychlorosene Sodium (Clorpactin Wcs-90) 2 gm TOP DAILY [facility] Last Admin: 06/13/17 09:17 Dose: 2 gm Zolpidem Tartrate (Ambien) 5 mg PO HS PRN; Protocol PRN Reason: Insomnia Last Admin: 06/12/17 23:01 Dose: 5 mg - Labs Labs: 06/14/17 06:00 06/14/17 06:00 PT 14.1 SECONDS (9.4-12.5) H 06/09/17 20:10 INR 1.29 (0.93-1.08) H 06/09/17 20:10 APTT 24.8 Seconds (25.1-36.5) L 06/09/17 20:10 - Constitutional Appears: Non-toxic - Head Exam Head Exam: NORMAL INSPECTION - ENT Exam ENT Exam: Mucous Membranes Moist - Neck Exam Neck Exam: absent: Lymphadenopathy, Meningismus - Respiratory Exam Respiratory Exam: Decreased Breath Sounds - Cardiovascular Exam Cardiovascular Exam: +S1, +S2 - GI/Abdominal Exam GI & Abdominal Exam: Soft. absent: Tenderness - Extremities Exam Additional comments: left foot with dressings in place Assessment and Plan - Assessment and Plan (Free Text) Plan: Assessment Severe sepsis with acute renal failure (resolved) due to left diabetic foot infection with abscess and probable gangrene and necrotizing infection with early osteomyelitis of the 5th proximal phalanx as seen on MRI, S/P I and D and debridement POD #4 DM HTN obesity with BMI 37 Plan continue Zyvox and Merrem; wound cx showing coag neg staph and corynebacterium which are probable contaminants - will need 4-6 weeks of antibiotics; can switch to Zyvox and Ertapenem with weekly ESR, CRP, CBC, CMP with out patient follow up with Podiatry
== END 2017-06-14 17:50 | disposition home or self-care (01) | DRG 581 ==
LOC: ED 19:39 → ERH 21:05 → 3RNO 22:47
PROVIDERS: ADMIT Family Medicine; ATTEND Family Medicine
PROC: 0JBR0ZZ Excision of Left Foot Subcutaneous Tissue and Fascia, Open Approach (ICD-10-PCS; principal; 2017-06-09)
PROC: 02HV33Z Insertion of Infusion Device into Superior Vena Cava, Percutaneous Approach (ICD-10-PCS; 2017-06-13)
PROC: B548ZZA Ultrasonography of Superior Vena Cava, Guidance (ICD-10-PCS; 2017-06-13)
DX: A41.9 Sepsis, unspecified organism (principal); A48.0 Gas gangrene; E11.52 Type 2 diabetes mellitus with diabetic peripheral angiopathy with gangrene; L02.612 Cutaneous abscess of left foot; M86.9 Osteomyelitis, unspecified; N17.9 Acute kidney failure, unspecified; N39.0 Urinary tract infection, site not specified; L97.529 Non-pressure chronic ulcer of other part of left foot with unspecified severity; E11.621 Type 2 diabetes mellitus with foot ulcer; E11.69 Type 2 diabetes mellitus with other specified complication; R65.20 Severe sepsis without septic shock; F41.9 Anxiety disorder, unspecified; I10 Essential (primary) hypertension; E66.9 Obesity, unspecified; Z68.37 Body mass index [BMI] 37.0-37.9, adult; Z87.891 Personal history of nicotine dependence

== ENCOUNTER 2017-07-05 21:30 | Emergency (ER) | payer MEDICAID ==
[2017-07-05 22:03] VITALS: TEMP 98.6
--- NOTE | 2017-07-05 22:11 | ED PDOC ---
Arrival/HPI - General Chief Complaint: Medical Clearance Time Seen by Provider: 07/05/17 22:04 Historian: Patient - History of Present Illness Narrative History of Present Illness (Text): 07/05/17 22:12 42yo male with PMhx of hypertension and Diabetes present requesting IV access. He states he have left foot infection and had a PICC line for IV antibiotics at home. He noticed when he woke up tonight that the PICC line came out. He states he was suppose to take his antibiotics twice , but have not taken it today. He otherwise denies fever, drainage from wound, chills, any other complaint. Past Medical History - Provider Review Nursing Documentation Reviewed: Yes - Cardiac Hx Pacemaker: No - Pulmonary Hx Respiratory Disorders: No - Renal Hx Renal Disorder: No - Endocrine/Metabolic Hx Diabetes Mellitus Type 2: Yes - Hematological/Oncological Hx Cancer: No - Musculoskeletal/Rheumatological Hx Falls: No - Psychiatric Hx Substance Use: No - Surgical History Hx Mastectomy: No - Anesthesia Hx Anesthesia Reactions: No Hx Malignant Hyperthermia: No Family/Social History - Physician Review Nursing Documentation Reviewed: Yes Family/Social History: Unknown Family HX Smoking Status: Former Smoker Hx Alcohol Use: No Hx Substance Use: No Allergies/Home Meds Allergies/Adverse Reactions: Allergies No Known Allergies Allergy (Verified 06/09/17 20:03) Home Medications: Home Meds Medication Instructions Recorded Confirmed GlipiZIDE [Glucotrol] 10 mg PO BID 06/09/17 07/05/17 MetFORMIN [glucoPHAGE] 1,000 mg PO BID 06/09/17 07/05/17 Review of Systems - Physician Review All systems were reviewed & negative as marked: Yes - Review of Systems Constitutional: Normal, Other (IV ascess) Eyes: Normal ENT: Normal Respiratory: Normal Cardiovascular: Normal Gastrointestinal: Normal Genitourinary Male: Normal Musculoskeletal: Normal Skin: Normal Neurological: Normal Endocrine: Normal Hemo/Lymphatic: Normal Psychiatric: Normal Physical Exam Vital Signs Reviewed: Yes Vital Signs Temp Pulse Resp BP Pulse Ox 07/06/17 01:13 92 H 17 167/90 H 96 07/05/17 21:58 98.6 F 106 H 18 182/107 H 97 Temperature: Afebrile Blood Pressure: Hypertensive Pulse: Tachycardic Respiratory Rate: Normal Appearance: Positive for: Well-Appearing, Non-Toxic, Comfortable Pain Distress: None Mental Status: Positive for: Alert and Oriented X 3 - Systems Exam Head: Present: Atraumatic, Normocephalic Pupils: Present: PERRL Extroacular Muscles: Present: EOMI Conjunctiva: Present: Normal Mouth: Present: Moist Mucous Membranes Neck: Present: Normal Range of Motion Respiratory/Chest: Present: Clear to Auscultation, Good Air Exchange. No: Respiratory Distress, Accessory Muscle Use Cardiovascular: Present: Regular Rate and Rhythm, Normal S1, S2. No: Murmurs Abdomen: Present: Normal Bowel Sounds. No: Tenderness, Distention, Peritoneal Signs Back: Present: Normal Inspection Upper Extremity: Present: Normal Inspection. No: Cyanosis, Edema Lower Extremity: Present: Normal Inspection, Other (Dressing noted to left foot) . No: Edema Neurological: Present: GCS=15, CN II-XII Intact, Speech Normal Skin: Present: Warm, Dry, Normal Color. No: Rashes Psychiatric: Present: Alert, Oriented x 3, Normal Insight, Normal Concentration Medical Decision Making ED Course and Treatment: 07/06/17 01:[address] Roberto galloway, he recommends peripheral IV antibiotics and PICC line placement next week. Case was IOANA Hart and he agreed with the plan to give abx in ED and DC home for PICC next week. IV antibiotics was given in ED. Pt agreed with the plan. - Medication Orders Current Medication Orders: Discontinued Medications Linezolid (Zyvox 600mg/300ml D5w) 600 mg in 300 mls @ 200 mls/hr IVPB Q12 [facility] PRN Reason: Protocol Stop: 07/06/17 00:04 Last Admin: 07/05/17 23:42 Dose: 200 mls/hr eMAR Start Stop Document 07/05/17 23:42 [email or web address] (Rec: 07/05/17 23:42 [email or web address] [email or web address] Intravenous Solution Start Date 07/05/17 Start Time 23:42 End Date 07/05/17 Ertapenem 1 gm/ Sodium (Chloride) 50 mls @ 100 mls/hr IVPB Q24H [facility] Stop: 07/05/17 23:05 Last Admin: 07/05/17 23:06 Dose: 100 mls/hr eMAR Start Stop Document 07/05/17 23:06 [email or web address] (Rec: 07/05/17 23:06 [email or web address] Intravenous Solution Start Date 07/05/17 Start Time 23:06 End Date 07/05/17 Disposition/Present on Arrival - Present on Arrival Any Indicators Present on Arrival: No History of DVT/PE: No History of Uncontrolled Diabetes: No Urinary Catheter: No History of Decub. Ulcer: No History Surgical Site Infection Following: None - Disposition Have Diagnosis and Disposition been Completed?: Yes Diagnosis: Diabetic foot infection Disposition: HOME/ ROUTINE Disposition Time: 01:30 Patient Plan: Discharge Patient Problems: Current Active Problems Problem Status Onset Diabetic foot infection Acute Condition: STABLE Discharge Instructions (ExitCare): Diabetic Foot Ulcers (ED) Additional Instructions: Follow up with your Doctor Return to Ed for any new or worsening symptoms Forms: [facility] (Uzbek)
[2017-07-05] MEDS ORDERED: Linezolid 600 mg in D5W 300 ml 600 MG/300 ML BAG IVPB STA (22:35)
[2017-07-06 01:13] VITALS: BP 167/90; PULSE 92
[2017-07-06 01:35] VITALS: RESP 19; O2SAT 98
== END 2017-07-06 01:35 | disposition home or self-care (01) ==
LOC: ED 21:30
DX: E11.69 Type 2 diabetes mellitus with other specified complication (principal); L08.9 Local infection of the skin and subcutaneous tissue, unspecified; I10 Essential (primary) hypertension; Z87.891 Personal history of nicotine dependence; Z79.84 Long term (current) use of oral hypoglycemic drugs
CPT/HCPCS: 96374; 96375; 99282; J1335; J2020

== ENCOUNTER 2017-07-12 13:42 | Emergency (ER) | payer MEDICAID ==
[2017-07-12 13:45] VITALS: BMI 37.3
[2017-07-12 13:55] VITALS: RESP 18
--- NOTE | 2017-07-12 13:55 | ED PDOC ---
Arrival/HPI - General Chief Complaint: Altered Mental Status Time Seen by Provider: 07/12/17 13:44 Historian: Patient, EMS - History of Present Illness Narrative History of Present Illness (Text): 07/12/17 13:54 Shant Vail is a non-insulin dependent 42 year old male, whose past medical history includes diabetes, presents to the Emergency department via EMS for hypoglycemia since this morning. As per ALS, patient's tenant called 911 upon hearing a "thump" and showed concern over the patient having a stroke. Upon ALS arrival, patient was found on his bed with altered mental status and with a blood glucose level of 44 mg/dL. Patient was administered glucagon by ALS and following improvement of symptoms, patient was brought to the Emergency department. Patient informs he currently feels fine as opposed to feeling "weird " in the morning. Patient states his last food intake was 12am last night but is unable to recall the content. Patient admits taking his diabetes medication 5am this morning and informs stopping his antibiotic medication yesterday. Patient denies any fever, chills, diarrhea, runny nose, vomiting, chest pain, palpitation, shortness of breath or any other complaints. PCP: Dr. Hart Time/Duration: 1-3 hours Symptom Onset: Gradual Symptom Course: Improving Activities at Onset: Light Context: Home Past Medical History - Provider Review Nursing Documentation Reviewed: Yes - Infectious Disease Hx of Infectious Diseases: None - Cardiac Hx Cardiac Disorders: Yes Hx Hypertension: Yes Hx Pacemaker: No - Pulmonary Hx Respiratory Disorders: No - Neurological Hx Neurological Disorder: No - HEENT Hx HEENT Disorder: No - Renal Hx Renal Disorder: No - Endocrine/Metabolic Hx Endocrine Disorders: Yes Hx Diabetes Mellitus Type 2: Yes - Hematological/Oncological Hx Cancer: No - Musculoskeletal/Rheumatological Hx Falls: No - Psychiatric Hx Substance Use: No - Surgical History Hx Mastectomy: No - Anesthesia Hx Anesthesia: No Hx Anesthesia Reactions: No Hx Malignant Hyperthermia: No Family/Social History - Physician Review Nursing Documentation Reviewed: Yes Family/Social History: Unknown Family HX Smoking Status: Former Smoker Hx Alcohol Use: No Hx Substance Use: No Allergies/Home Meds Allergies/Adverse Reactions: Allergies No Known Allergies Allergy (Verified 07/12/17 13:47) Home Medications: Home Meds Medication Instructions Recorded Confirmed GlipiZIDE [Glucotrol] 10 mg PO BID 06/09/17 07/12/17 MetFORMIN [glucoPHAGE] 1,000 mg PO BID 06/09/17 07/12/17 ALPRAZolam [Xanax] 0.25 mg PO DAILY 07/12/17 07/12/17 Lisinopril [Prinivil] 10 mg PO DAILY 07/12/17 07/12/17 Metoprolol Succinate [Toprol XL] 100 mg PO DAILY 07/12/17 07/12/17 Review of Systems - Physician Review All systems were reviewed & negative as marked: Yes - Review of Systems Constitutional: Normal. absent: Fevers, Night Sweats Eyes: Normal ENT: Normal. absent: Rhinorrhea Respiratory: Normal. absent: SOB Cardiovascular: Normal. absent: Chest Pain, Palpitations Gastrointestinal: Normal. absent: Diarrhea, Vomiting Genitourinary Male: Normal Musculoskeletal: Normal Skin: Other (left foot infection secondary to diabetes ) Neurological: Other (AMS ) Endocrine: Other (hypoglycemia) Hemo/Lymphatic: Normal Psychiatric: Normal Physical Exam Vital Signs Reviewed: Yes Vital Signs Temp Pulse Resp BP Pulse Ox 07/12/17 17:36 98 F 98 H 18 156/89 H 98 07/12/17 15:19 105 H 18 153/91 H 95 07/12/17 13:54 98.1 F 95 H 18 158/105 H 96 Temperature: Afebrile Blood Pressure: Hypertensive Pulse: Regular Respiratory Rate: Normal Appearance: Positive for: Well-Appearing, Non-Toxic, Comfortable Pain Distress: None Mental Status: Positive for: Alert and Oriented X 3 - Systems Exam Head: Present: Atraumatic, Normocephalic Pupils: Present: PERRL Extroacular Muscles: Present: EOMI Conjunctiva: Present: Normal Mouth: Present: Moist Mucous Membranes Neck: Present: Normal Range of Motion Respiratory/Chest: Present: Clear to Auscultation, Good Air Exchange. No: Respiratory Distress, Accessory Muscle Use Cardiovascular: Present: Regular Rate and Rhythm, Normal S1, S2. No: Murmurs Abdomen: Present: Normal Bowel Sounds. No: Tenderness, Distention, Peritoneal Signs Back: Present: Normal Inspection Upper Extremity: Present: Normal Inspection. No: Cyanosis, Edema Lower Extremity: Present: Tenderness (right calf tenderness ), Other (left lower cast secondary to diabetic infection ). No: Edema Neurological: Present: GCS=15, CN II-XII Intact, Speech Normal Skin: Present: Cold, Pale. No: Warm, Rashes Psychiatric: Present: Alert, Oriented x 3, Normal Insight, Normal Concentration Medical Decision Making ED Course and Treatment: 07/12/17 13:55 Impression: 42 year old male presents to the Emergency department for hypoglycemia. Differential Diagnosis included but are not limited to: hypoglycemia secondary to diabetic foot infection vs. medication vs. diet. Plan: -- VBG -- Ultrasound -- EKG -- Labs -- Chest X-ray -- Urinalysis -- Procalcitonin Serum Stat -- Reassess and disposition Prior Visits: Notes and results from previous visits were reviewed. On 06/09/17 patient presented to the Emergency department for left foot pain and swelling. Patient was admitted to the hospital for diabetic foot infection. Progress Notes: 07/12/17 14:30 EKG: Ordered, reviewed, and independently interpreted the EKG. Rate : 97 BPM Rhythm : NSR Interpretation : No ST-segment elevations or depressions, no T-wave inversions, normal intervals. 07/12/17 14:35 Chest X-ray reviewed by radiologist, shows no active disease. 07/12/17 16:[address] Sanchez came to evaluate patient. She removed the hard cast off his foot and there no evidence of acute infection. No redness or warmth. There is a healing wound. No pus. She reviewed the images with her attending and we all agreed it's a stable wound. She re-casted the wound. Patient admits that he doesn't believe he ate well yesterday. He works at night so his schedule is off. Will continue hydration and repeat LA. 07/12/17 16:49 Patient's repeat LA was improved to normal levels. FS in the 70's. Patient feels great with no symptoms. UA pending. 07/12/17 17:46 Patient is tolerating PO food in the ED. Glucose controlled. Patient denies lightheadedness or dizziness or any other symptoms. He will be discharge home with follow up with Dr. Hart and advised to return to the ED if symptoms worsen or any other concern. - Lab Interpretations Lab Results: 07/12/17 13:50 07/12/17 13:50 Lab Results 07/12/17 17:05: Urine Color Yellow, Urine Appearance Clear, Urine pH 6.0, Ur Specific [place] 1.025, Urine Protein 30 H, Urine Glucose (UA) Negative, Urine Ketones Trace H, Urine Blood Small H, Urine Nitrate Negative, Urine Bilirubin Negative, Urine Urobilinogen 0.2, Ur Leukocyte Esterase Negative, Urine RBC 1 - 3, Urine WBC 1 - 3, Ur Epithelial Cells 0 - 2, Urine Bacteria Small 07/12/17 16:30: pO2 37, VBG pH 7.32, VBG pCO2 53.0, VBG HCO3 27.3, VBG Total CO2 28.9 H, VBG O2 Sat (Calc) 75.8 H, VBG Base Excess 0.3, VBG Potassium 4.0, Sodium 142.0, Chloride 109.0 H, Glucose 83, Lactate 1.5, FiO2 21.0, Venous Blood Potassium 4.0 07/12/17 13:50: Sodium 144, Chloride 105, Potassium 3.7, Carbon Dioxide 24, Anion Gap 19, BUN 10, Creatinine 1.0, Est GFR ( Amer) > 60, Est GFR (Non- Af Amer) > 60, Random Glucose 126 H, Calcium 9.5, Phosphorus 2.6, Magnesium 1.4 L, Total Bilirubin 0.4, AST 37, ALT 37, Alkaline Phosphatase 55, Total Protein 7.5, Albumin 4.3, Globulin 3.3, Albumin/Globulin Ratio 1.3 07/12/17 13:50: pO2 35, VBG pH 7.27 L, VBG pCO2 55.0, VBG HCO3 25.3, VBG Total CO2 27.0, VBG O2 Sat (Calc) 72.3 H, VBG Base Excess -2.5 L, VBG Potassium 3.8, Sodium 143.0, Chloride 107.0, Glucose 129 H, Lactate 4.5 H*, FiO2 21.0, Venous Blood Potassium 3.8 07/12/17 13:50: PT 11.7, INR 1.07, APTT 28.6 07/12/17 13:50: WBC 7.1, RBC 3.31 L, Hgb 10.4 L, Hct 31.3 L, MCV 94.6, MCH 31.4 , MCHC 33.2, RDW 14.5, Plt Count 183, MPV 9.4, Gran % 88.7 H, Lymph % (Auto) 6.8 L, [place] % (Auto) 4.5, Eos % (Auto) 0.0 L, Baso % (Auto) 0.0, Gran # 6.29, Lymph # 0.5 L, [place] # 0.3, Eos # 0.0, Baso # 0.00 07/12/17 13:47: POC Glucose (mg/dL) 116 H - RAD Interpretation Radiology Orders: 07/12/17 13:52 CHEST PORTABLE [RAD] Stat 07/12/17 14:01 DUPLEX LOWER EXTRM VEIN BILAT [US] Stat Equipment Validation Engineer: Radiologist - Medication Orders Current Medication Orders: Discontinued Medications Sodium Chloride (Sodium Chloride 0.9%) 1,000 mls @ 999 mls/hr IV .Q1H1M STA Stop: 07/12/17 15:14 Last Admin: 07/12/17 14:18 Dose: 999 mls/hr eMAR Start Stop Document 07/12/17 14:18 LA (Rec: 07/12/17 14:18 LA [id number]) Intravenous Solution Start Date 07/12/17 Start Time 14:18 Sodium Chloride (Sodium Chloride 0.9%) 1,000 mls @ 999 mls/hr IV .Q1H1M STA Stop: 07/12/17 17:23 Last Admin: 07/12/17 16:26 Dose: 999 mls/hr eMAR Start Stop Document 07/12/17 16:26 LA (Rec: 07/12/17 16:26 LA [id number]) Intravenous Solution Start Date 07/12/17 Start Time 16:26 Magnesium Oxide (Mag-Ox) 400 mg PO STAT STA Stop: 07/12/17 14:53 Last Admin: 07/12/17 15:18 Dose: 400 mg - Scribe Statement The provider has reviewed the documentation as recorded by the Kassandra Roa All medical record entries made by the Kassandra were at my direction and personally dictated by me. I have reviewed the chart and agree that the record accurately reflects my personal performance of the history, physical exam, medical decision making, and the department course for this patient. I have also personally directed, reviewed, and agree with the discharge instructions and disposition. Disposition/Present on Arrival - Present on Arrival Any Indicators Present on Arrival: Yes History of DVT/PE: No History of Uncontrolled Diabetes: Yes Urinary Catheter: No History of Decub. Ulcer: No History Surgical Site Infection Following: None - Disposition Have Diagnosis and Disposition been Completed?: Yes Diagnosis: Hypoglycemia Disposition: HOME/ ROUTINE Disposition Time: 17:42 Patient Plan: Discharge Patient Problems: Current Active Problems Problem Status Onset Hypoglycemia Acute Condition: IMPROVED Discharge Instructions (ExitCare): Diabetic Hypoglycemia (ED) Additional Instructions: Mr Vail, thank you for letting us take care of you today. Your provider was Dr. Rushing. You were treated for Hypoglycemia. The emergency medical care you received today was directed at your acute symptoms. If you were prescribed any medication, please fill it and take as directed. It may take several days for your symptoms to resolve. Return to the Emergency Department if your symptoms worsen, do not improve, or if you have any other problems. Please contact your doctor or call one of the physicians/clinics you have been referred to that are listed on the Patient Visit Information form that is included in your discharge packet. Bring any paperwork you were given at discharge with you along with any medications you are taking to your follow up visit. Our treatment cannot replace ongoing medical care by a primary care provider (PCP) outside of the emergency department. Thank you for allowing the [facility] team to be part of your care today. If you had an X-Ray or CT scan: A Radiologist will review the ED reading if any change in treatment is needed we will contact you. If you had a blood, urine, or wound culture: It will take several days for the results, if any change in treatment is needed we will contact you. If you had an STI test: It will take 48 hours for the results. Please call after 1 week if you have not heard back. Referrals: Karl Hart, [Primary Care Provider] - Follow up with primary Forms: [place] (Polish), WORK NOTE
[2017-07-12 14:11] LABS: VENOUS BLOOD GAS BASE EXCESS -2.5 mmol/L (0.0-2.0); VENOUS BLOOD GAS PO2 35 mm/Hg (30-55); VENOUS BLOOD PH 7.27 (7.32-7.43)
[2017-07-12 14:13] LABS: GRAN # 6.29 (1.4-6.5); GRAN % 88.7 % (50.0-68.0); HEMOGLOBIN 10.4 g/dL (14.0-18.0); LYMPH # 0.5 (1.2-3.4); LYMPH % 6.8 % (22.0-35.0); MEAN CELL VOLUME 94.6 fl (80.0-105.0); MEAN CORPUSCULAR HEMOGLOBIN 31.4 pg (25.0-35.0); MEAN CORPUSCULAR HGB CONC 33.2 g/dl (31.0-37.0); MEAN PLATELET VOLUME 9.4 fl (7.0-11.0); MONO # 0.3 (0.1-0.6); MONO % 4.5 % (1.0-6.0); RBC 3.31 10^6/uL (3.5-6.1); RED CELL DISTRIBUTION WIDTH 14.5 % (11.5-14.5); WHITE BLOOD COUNT 7.1 10^3/ul (4.5-11.0)
[2017-07-12] MEDS ORDERED: Sodium Chloride 0.9% 1,000 ML IV STA ×2 (14:14→16:23)
[2017-07-12 14:21] LABS: PROTHROMBIN TIME 11.7 SECONDS (9.4-12.5)
[2017-07-12 14:30] LABS: INR 1.07 (0.93-1.08); PARTIAL THROMBOPLASTIN TIME 28.6 Seconds (25.1-36.5)
--- NOTE | 2017-07-12 14:31 | RAD ---
HISTORY: Sepsis Patient COMPARISON: No prior. FINDINGS: LUNGS: No active pulmonary disease. PLEURA: No significant pleural effusion identified, no pneumothorax apparent. CARDIOVASCULAR: Normal. OSSEOUS STRUCTURES: No significant abnormalities. VISUALIZED UPPER ABDOMEN: Normal. OTHER FINDINGS: None. IMPRESSION: No active disease.
[2017-07-12 14:38] LABS: ALB/GLOB RATIO 1.3 (1.1-1.8); ALBUMIN 4.3 g/dL (3.0-4.8); ALT/SGPT 37 U/L (7-56); AST/SGOT 37 U/L (17-59); BLOOD UREA NITROGEN 10 mg/dL (7-21); CALCIUM 9.5 mg/dL (8.4-10.5); GFR AFRICAN-AMERICAN > 60; GFR NON-AFRICAN AMERICAN > 60; MAGNESIUM 1.4 mg/dL (1.7-2.2)
[2017-07-12] MEDS ORDERED: Magnesium Oxide 400 mg Tab UD PO STA (14:52)
--- NOTE | 2017-07-12 15:45 | CP.PCM.CON ---
History of Present Illness - History of Present Illness History of Present Illness: Consult Note Podiatry- Dr. Chou 33 y.o male with PMH of DM and HTN seen in the ED for left foot ulceration. Patient presents to the ED for AMS and hypoglycemia. Patient reports that he was founded by his neighbor and presents to the ED. Patient is 1 month s/p I and D of left foot for abscess with soft tissue emphysema at [place] (DOS: 06/10). Patient was discharged home with IV abx. Patient reports that he finished his course of abx yesteday. Patient has been seeing by Dr. Chou weekly for continued care of left foot ulceration. He reports seeing Dr. Chou this Saturday and will see here in wound care clinic Saturday. Patient denies pain. Patient denies n/v/sob/cp/f/sob or D. PMH: DM, HTN PSH: I&D of left foot abscess and emphysema SH: former smoker- 20 year smoker 1 to 1/2 pack per day, denies drinking or illicted drug use ALL: strawberries, cherries (throat itch, swelling) FH- unknown family history; reports does not who father is MEDS: see medication list ROS: negative except per HPI Past Patient History - Infectious Disease Hx of Infectious Diseases: None - Past Social History Smoking Status: Former Smoker - CARDIAC Hx Cardiac Disorders: Yes Hx Hypertension: Yes Hx Pacemaker: No - PULMONARY Hx Respiratory Disorders: No - NEUROLOGICAL Hx Neurological Disorder: No - HEENT Hx HEENT Problems: No - RENAL Hx Chronic Kidney Disease: No - ENDOCRINE/METABOLIC Hx Endocrine Disorders: Yes Hx Diabetes Mellitus Type 2: Yes - HEMATOLOGICAL/ONCOLOGICAL Hx Cancer: No - MUSCULOSKELETAL/RHEUMATOLOGICAL Hx Falls: No - PSYCHIATRIC Hx Substance Use: No - SURGICAL HISTORY Hx Mastectomy: No - ANESTHESIA Hx Anesthesia: No Hx Anesthesia Reactions: No Hx Malignant Hyperthermia: No Meds Allergies/Adverse Reactions: Allergies Allergy/AdvReac Type Severity Reaction Status Date / Time No Known Allergies Allergy Verified 07/12/17 13:47 Physical Exam - Constitutional Appears: Well, Non-toxic, No Acute Distress - Extremities Exam Additional comments: VASC: DP/PT pulses are palpable 2/4, CFT < 3 sec to digits, temperature gradient , non-pitting edema noted on the dorsum and lateral aspect of the left foot extending to the ankle joint DERM: #1 ulceration noted on the dorsum lateral aspect of left lower extremity 80% granular and 20% fibrotic, ulceration measures approximately 1 x 1 x .1 cm, mild erythema present, no purulence, no odor, no streaking, no undermining, no probe to bone, no clinical signs of infection noted #2 ulceration noted on the plantar aspect of 5th metatarsal head measuring approximately 2 x 2 x . 3 cm. Wound base is 80% granular and 20% fibrotic with intact periwound, mild erythema present, no purulence, no odor, no streaking, no undermining, no probe to bone, no clinical signs of infection noted NEURO: Gross sensation and protective sensation grossly diminished ORTHO: No pain on palpation to ulceration sites - Neurological Exam Neurological exam: Alert - Psychiatric Exam Psychiatric exam: Normal Affect, Normal Mood Results - Vital Signs Recent Vital Signs: Last Vital Signs Temp 98.1 F 07/12/17 13:54 Pulse 95 H 07/12/17 13:54 Resp 18 07/12/17 13:54 BP 158/105 H 07/12/17 13:54 Pulse Ox 96 07/12/17 13:54 - Labs Result Diagrams: 07/12/17 13:50 07/12/17 13:50 Labs: Laboratory Results - last 24 hr 07/12/17 07/12/17 07/12/17 13:47 13:50 13:50 WBC 7.1 RBC 3.31 L Hgb 10.4 L Hct 31.3 L MCV 94.6 MCH 31.4 MCHC 33.2 RDW 14.5 Plt Count 183 MPV 9.4 Gran % 88.7 H Lymph % (Auto) 6.8 L [place] % (Auto) 4.5 Eos % (Auto) 0.0 L Baso % (Auto) 0.0 Gran # 6.29 Lymph # 0.5 L [place] # 0.3 Eos # 0.0 Baso # 0.00 PT 11.7 INR 1.07 APTT 28.6 pO2 VBG pH VBG pCO2 VBG HCO3 VBG Total CO2 VBG O2 Sat (Calc) VBG Base Excess VBG Potassium Sodium Chloride Glucose Lactate FiO2 Potassium Carbon Dioxide Anion Gap BUN Creatinine Est GFR ( Amer) Est GFR (Non-Af Amer) POC Glucose (mg/dL) 116 H Random Glucose Calcium Phosphorus Magnesium Total Bilirubin AST ALT Alkaline Phosphatase Total Protein Albumin Globulin Albumin/Globulin Ratio Venous Blood Potassium 07/12/17 07/12/17 13:50 13:50 WBC RBC Hgb Hct MCV MCH MCHC RDW Plt Count MPV Gran % Lymph % (Auto) [place] % (Auto) Eos % (Auto) Baso % (Auto) Gran # Lymph # [place] # Eos # Baso # PT INR APTT pO2 35 VBG pH 7.27 L VBG pCO2 55.0 VBG HCO3 25.3 VBG Total CO2 27.0 VBG O2 Sat (Calc) 72.3 H VBG Base Excess -2.5 L VBG Potassium 3.8 Sodium 143.0 144 Chloride 107.0 105 Glucose 129 H Lactate 4.5 H* FiO2 21.0 Potassium 3.7 Carbon Dioxide 24 Anion Gap 19 BUN 10 Creatinine 1.0 Est GFR ( Amer) > 60 Est GFR (Non-Af Amer) > 60 POC Glucose (mg/dL) Random Glucose 126 H Calcium 9.5 Phosphorus 2.6 Magnesium 1.4 L Total Bilirubin 0.4 AST 37 ALT 37 Alkaline Phosphatase 55 Total Protein 7.5 Albumin 4.3 Globulin 3.3 Albumin/Globulin Ratio 1.3 Venous Blood Potassium 3.8 Assessment & Plan - Assessment and Plan (Free Text) Assessment: 42 y.o male with PMH of DM and HTN for left lower extremity ulcerations- no clinical signs of infection Plan: Patient seen and evaluated in the ED Discussed the plan in detail with attending Dr. Chou Vitals, charts, labs reviewed (afebrile, absent leukocytosis WBC=7.1) Total contact cast removed Ulcerations cleansed with saline solution, dressed with maxosorb, gauze, abd, kerlix Modified total contact cast applied with extra padding to the malleolis, anterior lower extremity, and digits Patient may WBAT to the left LE with cane Educated on signs of infection- return to ED if present Patient to follow up with Dr. Chou in wound care on Saturday Thank you for the consult
[2017-07-12 16:37] LABS: VENOUS BLOOD GAS BASE EXCESS 0.3 mmol/L (0.0-2.0); VENOUS BLOOD GAS PO2 37 mm/Hg (30-55); VENOUS BLOOD PH 7.32 (7.32-7.43)
[2017-07-12 17:15] LABS: URINE BILIRUBIN NEGATIVE (NEGATIVE); URINE BLOOD SMALL (NEGATIVE); URINE GLUCOSE (UA) NEGATIVE (NEGATIVE); URINE LEUKOCYTE ESTERASE NEGATIVE Leu/uL (NEGATIVE); URINE NITRATE NEGATIVE (NEGATIVE); URINE PROTEIN 30 mg/dL (<30 mg/dL); URINE UROBILINOGEN 0.2 E.U./dL (<1 E.U./dL)
[2017-07-12 17:16] LABS: URINE COLOR YELLOW (YELLOW)
[2017-07-12 17:17] LABS: URINE APPEARANCE CLEAR (CLEAR)
[2017-07-12 17:32] LABS: URINE EPITHELIAL CELLS 0 - 2 /hpf (0-5)
[2017-07-12 17:33] LABS: URINE BACTERIA SMALL (NEG)
[2017-07-12 17:42] VITALS: BP 156/89; PULSE 98; TEMP 98; O2SAT 98
--- NOTE | 2017-07-13 10:35 | US ---
HISTORY: Leg pain and swelling. Evaluate for DVT PHYSICIAN(S): Roberto Yan MD. TECHNIQUE: Duplex sonography and color-flow Doppler with graded compression were used to evaluate the deep venous systems of both lower extremities. The exam is limited by body habitus FINDINGS: The visualized deep venous systems of both lower extremities are sonographically normal and compressible. Normal wave forms and augmentation are seen. There is no sonographic evidence for deep venous thrombosis in the visualized segments of both lower extremities. IMPRESSION: No sonographic evidence for deep venous thrombosis in the visualized segments of both lower extremities.
--- NOTE | 2017-07-13 14:53 | CARD ---
APPROVED REPORT EKG Measurement Heart [id number] <Conclusion> Normal sinus rhythm Normal ECG
== END 2017-07-12 18:08 | disposition home or self-care (01) ==
LOC: ED 13:42
DX: E11.649 Type 2 diabetes mellitus with hypoglycemia without coma (principal); I10 Essential (primary) hypertension; Z87.891 Personal history of nicotine dependence
CPT/HCPCS: 71010; 80053; 81001; 82803; 82948; 83735; 84100; 84145; 85025; 85610; 85730; 87040; 87086; 87149; 87181; 87205; 93005; 93970; 99285; J7040